=== PATIENT | male | born 1985 | race Caucasian/White ===

== ENCOUNTER 2017-01-15 18:14 | Inpatient (IN) | payer BC ==
[2017-01-15] MEDS ORDERED: Ketorolac 30 MG/ML SDV IVPUSH ONE (18:49)
[2017-01-15] MEDS ORDERED: Lidocaine 2% Viscous Solution 15 ML Cup PO ONE (18:49)
[2017-01-15] MEDS ORDERED: Sodium Chloride 0.9% 1,000 ML IV ONE (18:49)
--- NOTE | 2017-01-15 19:00 | EDM.PDOC ---
ED HPI GENERAL MEDICAL PROBLEM - General Chief Complaint: ENT Problem Stated Complaint: SORE THROAT Time Seen by Provider: 01/15/17 18:50 Source of Information: Reports: Patient History Limitations: Reports: No Limitations - History of Present Illness INITIAL COMMENTS - FREE TEXT/NARRATIVE: 31-year-old male presents for evaluation treatment of sore throat. Patient reports that the sore throat began on Wednesday. He was seen at the walk-in clinic on Wednesday. Rapid strep was performed and this was negative. He was placed on a Medrol dose pack. Patient states he has been taking the Medrol Dosepak and ibuprofen as prescribed but his symptoms have continues to worsen. He is currently complaining of fevers, chills, rigors, nausea, neck pain, odynophagia , neck swelling and pain into the ears. He is also complaining of headaches. He denies any vomiting or cough. Patient denies any ill contacts. He denies any recent travel. Patient has had his childhood immunizations. Location: Reports: Neck Treatments SCREEN AND CYCLONE REPAIRER: Reports: Other (see below) Other Treatments SCREEN AND CYCLONE REPAIRER: motrin at 1400 Throat Pain Score (Numeric/FACES): 10 - Related Data Allergies Allergy/AdvReac Type Severity Reaction Status Date / Time cefaclor [From [facility]] Allergy Cannot Verified 01/15/17 18:36 Remember Penicillins Allergy Cannot Verified 01/15/17 18:36 Remember Past Medical History - Past Surgical History HEENT Surgical History: Reports: Tonsillectomy Social & Family History - Tobacco Use Smoking Status *Q: Never Smoker - Recreational Drug Use Recreational Drug Use: Yes Recreational Drug Type: Reports: Marijuana/Hashish Recreational Drug Use Frequency: Socially ED ROS ENT - Review of Systems Review Of Systems: See Below Constitutional: Reports: Fever, Chills, Malaise, Decreased Appetite HEENT: Reports: Ear Pain, Throat Pain Respiratory: Denies: Cough GI/Abdominal: Reports: Nausea. Denies: Vomiting Musculoskeletal: Reports: Neck Pain Neurological: Reports: Headache ED EXAM, ENT - Physical Exam Exam: See Below Exam Limited By: No Limitations General Appearance: Alert, WD/WN, No Apparent Distress Eye Exam: Bilateral Eye: EOMI Ears: Normal External Exam, Normal Canal, Hearing Grossly Normal, Normal TMs Nose: Normal Inspection Mouth/Throat: Normal Inspection, Normal Gums, Normal Lips, Normal Teeth, Muffled Voice, Pharyngeal Erythema, Other (absent tonsils). No: Dental Abcess, Dental Tenderness, Peritonsillar Mass Head: Atraumatic, Normocephalic Neck: Tender Lateral, Other (swollen and erythematous neck) Respiratory/Chest: No Respiratory Distress, Lungs Clear, Normal Breath Sounds. No: Stridor Cardiovascular: Normal Peripheral Pulses, Regular Rate, Rhythm, No Murmur GI/Abdominal: Soft, Non-Tender Neurological: Alert, Oriented, Normal Cognition Psychiatric: Normal Affect, Normal Mood Skin: Warm, Dry, Erythema (anterior neck) Course - Vital Signs Last Recorded V/S: Last Vital Signs Temp 39.0 C H 01/15/17 18:34 Pulse 112 H 01/15/17 18:34 Resp 16 01/15/17 18:34 BP 127/68 01/15/17 18:34 Pulse Ox 98 01/15/17 18:34 - Orders/Labs/Meds Orders: Active Orders 24 hr Category Date Time Status Antiembolic Devices [RC] PER UNIT ROUTINE Care 01/15/17 22:52 Active Height and Weight [RC] DAILY Care 01/15/17 22:51 Active Intake and Output [RC] QSHIFT Care 01/15/17 22:51 Active Oxygen Therapy [RC] PRN Care 01/15/17 22:51 Active Peripheral IV Care [RC] . DIRECTED Care 01/15/17 18:49 Active RT Aerosol Therapy [RC] ASDIRECTED Care 01/15/17 22:53 Active Up With Assistance [RC] ASDIRECTED Care 01/15/17 22:51 Active Up ad Heather [RC] ASDIRECTED Care 01/15/17 22:51 Active VTE/DVT Education [RC] PER UNIT ROUTINE Care 01/15/17 22:51 Active Vital Signs [RC] Q4H Care 01/15/17 22:51 Active Consult to Case Management [CONS] Routine Cons 01/15/17 22:53 Active Respiratory Care Assess and Treatment [CONS] Routine Cons 01/15/17 22:53 Active Clear Liquid Diet [DIET] Diet 01/15/17 Dinner Active Soft Tissue Neck w Cont [CT] Stat Exams 01/15/17 20:11 Taken BASIC METABOLIC PANEL,BMP [CHEM] AM Lab 01/16/17 05:11 Ordered BASIC METABOLIC PANEL,BMP [CHEM] AM Lab 01/17/17 05:11 Ordered BASIC METABOLIC PANEL,BMP [CHEM] AM Lab 01/18/17 05:11 Ordered C-REACTIVE PROTEIN [CHEM] AM Lab 01/16/17 05:11 Ordered C-REACTIVE PROTEIN [CHEM] AM Lab 01/17/17 05:11 Ordered C-REACTIVE PROTEIN [CHEM] AM Lab 01/18/17 05:11 Ordered CBC WITH AUTO DIFF [HEME] AM Lab 01/16/17 05:11 Ordered CBC WITH AUTO DIFF [HEME] AM Lab 01/17/17 05:11 Ordered CBC WITH AUTO DIFF [HEME] AM Lab 01/18/17 05:11 Ordered CULTURE BLOOD [BC] Stat Lab 01/15/17 19:08 Received CULTURE BLOOD [BC] Stat Lab 01/15/17 19:10 Received CULTURE STREP A CONFIRMATION [RM] Stat Lab 01/15/17 19:20 Results MAGNESIUM [CHEM] AM Lab 01/16/17 05:11 Ordered MAGNESIUM [CHEM] AM Lab 01/17/17 05:11 Ordered MAGNESIUM [CHEM] AM Lab 01/18/17 05:11 Ordered STREP SCRN A RAPID W CULT CONF [RM] Stat Lab 01/15/17 19:20 Results Acetaminophen [Tylenol] Med 01/15/17 22:51 Active 650 mg PO Q4H PRN Acetaminophen/HYDROcodone [[place] 325-5 MG] Med 01/15/17 22:51 Active 1 tab PO Q4H PRN Albuterol/Ipratropium [DuoNeb 3.0-0.5 MG/3 ML] Med 01/15/17 22:51 Active 3 ml NEB Q4H PRN Bisacodyl [Dulcolax] Med 01/15/17 22:51 Active 5 mg PO DAILY PRN Clindamycin Phosphate [Cleocin] 900 mg Med 01/16/17 04:00 Active Sodium Chloride 0.9% [Normal Saline] 100 ml IV Q6H Dexamethasone Med 01/16/17 05:00 Active 4 mg IVPUSH Q6H Docusate Sodium [Colace] Med 01/15/17 22:51 Active 100 mg PO BID PRN Docusate Sodium/Sennosides [Senna Plus] Med 01/15/17 22:51 Active 1 tab PO BID PRN HYDROmorphone [Dilaudid] Med 01/15/17 22:51 Active 1 mg IVPUSH Q4H PRN LORazepam [Ativan] Med 01/15/17 22:51 Active 1 mg IV Q6H PRN Magnesium Rep Pharmacy to Dose [Pharmacy to Dose - Med 01/15/17 23:00 Pending Magnesium Replacement] 1 dose .XX ASDIRECTED Metoprolol Tartrate [Lopressor] Med 01/15/17 22:51 Active 5 mg IVPUSH Q4H PRN Ondansetron [Zofran] Med 01/15/17 22:51 Active 4 mg IV Q6H PRN Polyethylene Glycol 3350 [MiraLAX] Med 01/15/17 22:51 Active 17 gm PO DAILY PRN Potassium Rep Pharmacy to Dose [Pharmacy to Dose - Med 01/15/17 23:00 Pending Potassium Replacement] 1 dose .XX ASDIRECTED Promethazine [Phenergan] 12.5 mg Med 01/15/17 22:51 Active Sodium Chloride 0.9% [Normal Saline] 50 ml IV Q6H Saccharomyces Boulardii [Florastor] Med 01/16/17 09:00 Active 250 mg PO TID Sodium Chloride 0.9% [Normal Saline] 1,000 ml Med 01/15/17 20:30 Active IV ASDIRECTED Sodium Chloride 0.9% [Saline Flush] Med 01/15/17 18:49 Active 10 ml FLUSH ASDIRECTED PRN Sodium Chloride 0.9% [Saline Flush] Med 01/15/17 20:30 Active 10 ml FLUSH ONETIME PRN Temazepam [Restoril] Med 01/15/17 22:51 Active 30 mg PO BEDTIME PRN cefTRIAXone [Rocephin] 2 gm Med 01/15/17 23:00 Active Sodium Chloride 0.9% [Normal Saline] 100 ml IV Q24H hydrALAZINE [Apresoline] Med 01/15/17 22:51 Active 20 mg IVPUSH Q4H PRN Blood Culture x2 Reflex Set [OM.PC] Stat Oth 01/15/17 18:49 Ordered Peripheral IV Insertion Adult [OM.PC] Routine Oth 01/15/17 18:49 Ordered Sequential Compression Device [OM.PC] Per Unit Routine Oth 01/15/17 22:51 Ordered Resuscitation Status Routine Resus Stat 01/15/17 22:51 Ordered Medication Orders Acetaminophen (Tylenol) 650 mg PO Q4H PRN PRN Reason: Pain (Mild 1-3)/fever Hydrocodone Bitart/Acetaminophen ([place] 325-5 Mg) 1 tab PO Q4H PRN PRN Reason: Pain (moderate 4-6) Albuterol/Ipratropium (Duoneb 3.0-0.5 Mg/3 Ml) 3 ml NEB Q4H PRN PRN Reason: Shortness Of Breath/wheezing Bisacodyl (Dulcolax) 5 mg PO DAILY PRN PRN Reason: Constipation Dexamethasone (Dexamethasone) 4 mg IVPUSH Q6H [facility] Docusate Sodium (Colace) 100 mg PO BID PRN PRN Reason: Constipation Hydralazine HCl (Apresoline) 20 mg IVPUSH Q4H PRN PRN Reason: Hypertension Hydromorphone HCl (Dilaudid) 1 mg IVPUSH Q4H PRN PRN Reason: Pain (severe 7-10) Last Admin: 01/16/17 00:17 Dose: 1 mg Sodium Chloride (Normal Saline) 1,000 mls @ 125 mls/hr IV ASDIRECTED [facility] Last Admin: 01/15/17 21:13 Dose: 125 mls/hr Clindamycin Phosphate 900 mg/ (Sodium Chloride) 106 mls @ 100 mls/hr IV Q6H [facility] Promethazine HCl 12.5 mg/ (Sodium Chloride) 50.5 mls @ 100 mls/hr IV Q6H PRN PRN Reason: Nausea/Vomiting Ceftriaxone Sodium 2 gm/ (Sodium Chloride) 100 mls @ 200 mls/hr IV Q24H [facility] Last Admin: 01/16/17 00:18 Dose: 200 mls/hr Lorazepam (Ativan) 1 mg IV Q6H PRN PRN Reason: Anxiety Magnesium Sulfate (Pharmacy To Dose - Magnesium Replacement) 1 dose .XX ASDIRECTED [facility] Metoprolol Tartrate (Lopressor) 5 mg IVPUSH Q4H PRN PRN Reason: Tachycardia Ondansetron HCl (Zofran) 4 mg IV Q6H PRN PRN Reason: Nausea/Vomiting Polyethylene Glycol (Miralax) 17 gm PO DAILY PRN PRN Reason: Constipation Potassium Chloride (Pharmacy To Dose - Potassium Replacement) 1 dose .XX ASDIRECTED [facility] Saccharomyces Boulardii (Florastor) 250 mg PO TID [facility]IVA Senna/Docusate Sodium (Senna Plus) 1 tab PO BID PRN PRN Reason: Constipation Sodium Chloride (Saline Flush) 10 ml FLUSH ASDIRECTED PRN PRN Reason: Keep Vein Open Last Admin: 01/15/17 20:43 Dose: 10 ml Admin: 01/15/17 19:10 Dose: 10 ml Sodium Chloride (Saline Flush) 10 ml FLUSH ONETIME PRN PRN Reason: IV FLUSH Last Admin: 01/15/17 21:09 Dose: 10 ml Temazepam (Restoril) 30 mg PO BEDTIME PRN PRN Reason: Sleep Last Admin: 01/16/17 00:18 Dose: 30 mg Labs: Laboratory Tests 01/15/17 01/15/17 01/15/17 Range/Units 19:08 19:08 19:08 WBC 14.18 H (4.23-9.07) K/mm3 RBC 5.01 (4.63-6.08) M/mm3 Hgb 14.7 (13.7-17.5) gm/L Hct 44.5 (40.1-51.0) % MCV 88.8 (79.0-92.2) fl MCH 29.3 (25.7-32.2) pg MCHC 33.0 (32.2-35.5) g/dl RDW Std Deviation 42.5 (35.1-43.9) fL Plt Count 196 (163-337) K/mm3 MPV 11.0 (9.4-12.3) fl Neutrophils % (Manual) 82 H (40-60) % Band Neutrophils % 3 (0-10) % Lymphocytes % (Manual) 14 L (20-40) % Atypical Lymphs % 0 % Monocytes % (Manual) 1 L (2-10) % Eosinophils % (Manual) 0 L (0.8-7.0) % Basophils % (Manual) 0 L (0.2-1.2) Platelet Estimate Adequate Plt Morphology Comment Normal RBC Morph Comment Normal Sodium 138 (136-145) mEq/L Potassium 4.2 (3.5-5.1) mEq/L Chloride 101 (98-107) mEq/L Carbon Dioxide 25 (21-32) mEq/L Anion Gap 16.2 H (5-15) BUN 22 H (7-18) mg/dL Creatinine 1.1 (0.7-1.3) mg/dL Est Cr Clr Drug Dosing 83.09 mL/min Estimated GFR (MDRD) > 60 (>60) mL/min BUN/Creatinine Ratio 20.0 H (14-18) Glucose 113 H (74-106) mg/dL Lactic Acid 1.1 (0.4-2.0) mmol/L Calcium 9.6 (8.5-10.1) mg/dL Total Bilirubin 0.5 (0.2-1.0) mg/dL AST 108 H (15-37) U/L ALT 174 H (16-63) U/L Alkaline Phosphatase 86 (46-116) U/L C-Reactive Protein 21.2 H* (<1.0) mg/dL Total Protein 9.1 H (6.4-8.2) g/dl Albumin 3.8 (3.4-5.0) g/dl Globulin 5.3 gm/dL Albumin/Globulin Ratio 0.7 L (1-2) Monoscreen (NEGATIVE) 01/15/17 Range/Units 19:08 WBC (4.23-9.07) K/mm3 RBC (4.63-6.08) M/mm3 Hgb (13.7-17.5) gm/L Hct (40.1-51.0) % MCV (79.0-92.2) fl MCH (25.7-32.2) pg MCHC (32.2-35.5) g/dl RDW Std Deviation (35.1-43.9) fL Plt Count (163-337) K/mm3 MPV (9.4-12.3) fl Neutrophils % (Manual) (40-60) % Band Neutrophils % (0-10) % Lymphocytes % (Manual) (20-40) % Atypical Lymphs % % Monocytes % (Manual) (2-10) % Eosinophils % (Manual) (0.8-7.0) % Basophils % (Manual) (0.2-1.2) Platelet Estimate Plt Morphology Comment RBC Morph Comment Sodium (136-145) mEq/L Potassium (3.5-5.1) mEq/L Chloride (98-107) mEq/L Carbon Dioxide (21-32) mEq/L Anion Gap (5-15) BUN (7-18) mg/dL Creatinine (0.7-1.3) mg/dL Est Cr Clr Drug Dosing mL/min Estimated GFR (MDRD) (>60) mL/min BUN/Creatinine Ratio (14-18) Glucose (74-106) mg/dL Lactic Acid (0.4-2.0) mmol/L Calcium (8.5-10.1) mg/dL Total Bilirubin (0.2-1.0) mg/dL AST (15-37) U/L ALT (16-63) U/L Alkaline Phosphatase (46-116) U/L C-Reactive Protein (<1.0) mg/dL Total Protein (6.4-8.2) g/dl Albumin (3.4-5.0) g/dl Globulin gm/dL Albumin/Globulin Ratio (1-2) Monoscreen Negative (NEGATIVE) Meds: Medications Generic Name Dose Route Start Last Admin Trade Name Freq PRN Reason Stop Dose Admin Acetaminophen 650 mg 01/15/17 22:51 Tylenol PO Q4H PRN Pain (Mild 1-3)/fever Hydrocodone Bitart/Acetaminophen 1 tab 01/15/17 22:51 [place] 325-5 Mg PO Q4H PRN Pain (moderate 4-6) Albuterol/Ipratropium 3 ml 01/15/17 22:51 Duoneb 3.0-0.5 Mg/3 Ml NEB Q4H PRN Shortness Of Breath/wheezing Bisacodyl 5 mg 01/15/17 22:51 Dulcolax PO DAILY PRN Constipation Dexamethasone 4 mg 01/16/17 05:00 Dexamethasone IVPUSH Q6H [facility] Docusate Sodium 100 mg 01/15/17 22:51 Colace PO BID PRN Constipation Hydralazine HCl 20 mg 01/15/17 22:51 Apresoline IVPUSH Q4H PRN Hypertension Hydromorphone HCl 1 mg 01/15/17 22:51 01/16/17 00:17 Dilaudid IVPUSH 1 mg Q4H PRN Administration Pain (severe 7-10) Sodium Chloride 1,000 mls @ 125 mls/hr 01/15/17 20:30 01/15/17 21:13 Normal Saline IV 125 mls/hr ASDIRECTED [facility]A Administration Clindamycin Phosphate 900 mg/ 106 mls @ 100 mls/hr 01/16/17 04:00 Sodium Chloride IV Q6H [facility] Promethazine HCl 12.5 mg/ 50.5 mls @ 100 mls/hr 01/15/17 22:51 Sodium Chloride IV Q6H PRN Nausea/Vomiting Ceftriaxone Sodium 2 gm/ 100 mls @ 200 mls/hr 01/15/17 23:00 01/16/17 00:18 Sodium Chloride IV 200 mls/hr Q24H [facility] Administration Lorazepam 1 mg 01/15/17 22:51 Ativan IV Q6H PRN Anxiety Magnesium Sulfate 1 dose 01/15/17 23:00 Pharmacy To Dose - Magnesium Replacement .XX ASDIRECTED [facility] Metoprolol Tartrate 5 mg 01/15/17 22:51 Lopressor IVPUSH Q4H PRN Tachycardia Ondansetron HCl 4 mg 01/15/17 22:51 Zofran IV Q6H PRN Nausea/Vomiting Polyethylene Glycol 17 gm 01/15/17 22:51 Miralax PO DAILY PRN Constipation Potassium Chloride 1 dose 01/15/17 23:00 Pharmacy To Dose - Potassium Replacement .XX ASDIRECTED [facility] Saccharomyces Boulardii 250 mg 01/16/17 09:00 Florastor PO TID [facility]A Senna/Docusate Sodium 1 tab 01/15/17 22:51 Senna Plus PO BID PRN Constipation Sodium Chloride 10 ml 01/15/17 18:49 01/15/17 20:43 Saline Flush FLUSH 10 ml ASDIRECTED PRN Administration Keep Vein Open Sodium Chloride 10 ml 01/15/17 20:30 01/15/17 21:09 Saline Flush FLUSH 10 ml ONETIME PRN Administration IV FLUSH Temazepam 30 mg 01/15/17 22:51 01/16/17 00:18 Restoril PO 30 mg BEDTIME PRN Administration Sleep Discontinued Medications Generic Name Dose Route Start Last Admin Trade Name Freq PRN Reason Stop Dose Admin Dexamethasone 10 mg 01/15/17 22:30 01/15/17 22:59 Dexamethasone IVPUSH 01/15/17 22:31 10 mg ONETIME ONE Administration Hydromorphone HCl 1 mg 01/15/17 20:11 01/15/17 20:42 Dilaudid IVPUSH 01/15/17 20:12 1 mg ONETIME ONE Administration Sodium Chloride 1,000 mls @ 999 mls/hr 01/15/17 18:49 01/15/17 19:11 Normal Saline IV 01/15/17 19:49 999 mls/hr ONETIME ONE Administration Clindamycin Phosphate 900 mg/ 106 mls @ 100 mls/hr 01/15/17 22:07 01/15/17 22 :21 Sodium Chloride IV 01/15/17 23:10 100 mls/hr ONETIME ONE Administration Vancomycin HCl 1 gm/ Sodium 250 mls @ 250 mls/hr 01/15/17 22:24 01/15/17 23: 23 Chloride IV 01/15/17 23:23 Not Given ONETIME ONE Iopamidol 80 ml 01/15/17 20:30 01/15/17 21:08 Isovue-300 (61%) IVPUSH 01/15/17 20:31 80 ml ONETIME ONE Administration Ketorolac Tromethamine 30 mg 01/15/17 18:49 01/15/17 19:10 Toradol IVPUSH 01/15/17 18:50 30 mg ONETIME ONE Administration Lidocaine HCl 15 ml 01/15/17 18:49 01/15/17 19:11 Xylocaine 2% Viscous PO 01/15/17 18:50 15 ml ONETIME ONE Administration - Radiology Interpretation Free Text/Narrative:: Ct of the soft tissues of the neck impression per Vrad : 1. retropharyngeal abscess and inflammatory change with some right carotid space fluid attenuation. 2. Laryngeal airway appears diminutive. Clinical correlation requested. 3. Adenoiditis without definite tonsillitis. CT Results Date: 01/15/17 - Re-Assessments/Exams Free Text/Narrative Re-Assessment/Exam: 01/16/17 00:39 Labs returned. White blood cell count is elevated at 14.18 with 3% bands, hemoglobin is 14.7 and platelets are 126. CRP is elevated at 21.2. sodium is 138, potassium is 4.2 chloride is 101. Anion gap is 16.2. Glucose is 113. AST is 108. ALT is 174 and alkaline phosphatase is 84. Edgar was negative. Strep is negative. Blood cultures have been ordered. Once lab studies returned the decision was made to CT of the neck to rule out an abscess. CT showed a retropharyngeal abscess. I discussed the case with Dr. Malik and Dr. Comer at [facility] in [place]. Dr. Malik recommended high doses of antibiotics. He did not feel that the patient needed to be transferred to [facility] in [facility]. Recommended starting clindamycin 900 mg IV and vancomycin. Also recommended given 10 mg IV Decadron. I discussed the case with Dr. Shea, hospitalist on-call. He feels comfortable accepting in the patient will accept the patient to [facility]. Departure - Departure Time of Disposition: 00:42 Disposition: Admitted As Inpatient 64 Condition: Serious Clinical Impression: Retropharyngeal abscess - Discharge Information - My Orders Last 24 Hours: My Active Orders 01/15/17 18:49 Peripheral IV Care [RC] . DIRECTED Sodium Chloride 0.9% [Saline Flush] 10 ml FLUSH ASDIRECTED PRN Blood Culture x2 Reflex Set [OM.PC] Stat Peripheral IV Insertion Adult [OM.PC] Routine 01/15/17 19:08 CULTURE BLOOD [BC] Stat 01/15/17 19:10 CULTURE BLOOD [BC] Stat 01/15/17 19:20 CULTURE STREP A CONFIRMATION [RM] Stat STREP SCRN A RAPID W CULT CONF [RM] Stat 01/15/17 20:11 Soft Tissue Neck w Cont [CT] Stat 01/15/17 20:30 Sodium Chloride 0.9% [Normal Saline] 1,000 ml IV ASDIRECTED Sodium Chloride 0.9% [Saline Flush] 10 ml FLUSH ONETIME PRN - Assessment/Plan Last 24 Hours: My Active Orders 01/15/17 18:49 Peripheral IV Care [RC] . DIRECTED Sodium Chloride 0.9% [Saline Flush] 10 ml FLUSH ASDIRECTED PRN Blood Culture x2 Reflex Set [OM.PC] Stat Peripheral IV Insertion Adult [OM.PC] Routine 01/15/17 19:08 CULTURE BLOOD [BC] Stat 01/15/17 19:10 CULTURE BLOOD [BC] Stat 01/15/17 19:20 CULTURE STREP A CONFIRMATION [RM] Stat STREP SCRN A RAPID W CULT CONF [RM] Stat 01/15/17 20:11 Soft Tissue Neck w Cont [CT] Stat 01/15/17 20:30 Sodium Chloride 0.9% [Normal Saline] 1,000 ml IV ASDIRECTED Sodium Chloride 0.9% [Saline Flush] 10 ml FLUSH ONETIME PRN
[2017-01-15] MEDS: Sodium Chloride 0.9% 10 ML Syringe FLUSH PRN ×2 (19:10→20:43)
[2017-01-15] MEDS ORDERED: HYDROmorphone 1 MG/ML Syringe IVPUSH ONE (20:11)
[2017-01-15] MEDS ORDERED: Iopamidol 612 MG/ML 100 ML Bottle IVPUSH ONE (20:30)
[2017-01-15] MEDS ORDERED: Sodium Chloride 0.9% 10 ML Syringe FLUSH PRN (20:30)
[2017-01-15] MEDS: Sodium Chloride 0.9% 1,000 ML IV SCH (21:13)
[2017-01-15] MEDS ORDERED: Clindamycin Phosphate 900 MG in Sodium Chloride 0.9% 100 ML IV ONE (22:07)
[2017-01-15] MEDS ORDERED: Dexamethasone 10 MG/ML SDV IVPUSH ONE (22:30)
--- NOTE | 2017-01-15 22:50 | PCM.HP ---
H&P History of Present Illness - General Date of Service: 01/15/17 Admit Problem/Dx: Retropharyngeal abscess and adenoiditis Source of Information: Patient, Old Records, Provider, RN Notes Reviewed History Limitations: Reports: No Limitations - History of Present Illness Initial Comments - Free Text/Narative: His is a 31 year old white male with no past medical history who comes seen we complains of sore throat that started Wednesday. He was seen initially at the walk- in clinic on Wednesday and was found negative for strep. He was given medrol dosepak and ibuprofen on discharge but he experienced no relief. The patient presented to emergency department with complaints of fever, chills, nausea and neck pain, edema and odynophagia. Patient denies any previous history in the past. No sick contact or upper respiratory infection. Denies any recent travel. He is not an active smoker. His initial workup in the emergency department shows a CBC remarkable for WBC of 14.18 and neutrophils of 82%. His chemistry is remarkable for anion gap of 16.2, BUN of 22, glucose of 113, AST of 108, ALT of 174, CRP of 21.2 and total protein of 9.1. He is negative for mono screen. His soft tissue of neck CT scan V-rad report reads retropharyngeal abscess and inflammatory change with some right carotid space fluid attenuation. Laryngeal airway appears diminutive clinical correlation requested. Number next adenoiditis without definite active definite tonsillitis. Patient received initial treatment in the emergency department before he was sent to the floor for further management. At the time of my examination, he appeared comfortable and somewhat better. He is being admitted for treatment of retropharyngeal abscess with adenoiditis. Throat Pain Score (Numeric/FACES): 10 - Related Data Allergies/Adverse Reactions: Allergies Allergy/AdvReac Type Severity Reaction Status Date / Time cefaclor [From [facility]] Allergy Cannot Verified 01/15/17 18:36 Remember Penicillins Allergy Cannot Verified 01/15/17 18:36 Remember Past Medical History - Past Surgical History HEENT Surgical History: Reports: Tonsillectomy Social & Family History - Tobacco Use Smoking Status *Q: Never Smoker - Recreational Drug Use Recreational Drug Use: Yes Recreational Drug Type: Reports: Marijuana/Hashish Recreational Drug Use Frequency: Socially H&P Review of Systems - Review of Systems: Review Of Systems: See Below General: Reports: Fever, Chills, Malaise, Decreased Appetite HEENT: Reports: No Symptoms, Dysphasia, Ear Pain, Eye Pain, Headaches, Other ( no muffled voice or drooling). Denies: Sore Throat Cardiovascular: Reports: No Symptoms Gastrointestinal: Reports: Nausea. Denies: Abdominal Pain, Vomiting Genitourinary: Reports: No Symptoms Musculoskeletal: Reports: No Symptoms Skin: Denies: Pruritis, Rash, Erythema Psychiatric: Denies: Depression, Anxiety, Hallucinations, Suicidal Ideation, Homicidal Ideation Neurological: Reports: Headache. Denies: Confusion Hematologic/Lymphatic: Reports: No Symptoms Immunologic: Reports: No Symptoms Exam - Exam Exam: See Below - Vital Signs Vital Signs: Last Vital Signs Temp 39.0 C H 01/15/17 18:34 Pulse 112 H 01/15/17 18:34 Resp 16 01/15/17 18:34 BP 127/68 01/15/17 18:34 Pulse Ox 98 01/15/17 18:34 Weight: 88.451 kg - Exam General: Alert, Oriented, Cooperative, Other (Comfortable and voice not muffled) HEENT: Conjunctiva Clear, EACs Clear, EOMI, Hearing Intact, Mucosa Moist & [place] , Nares Patent, Normal Nasal Septum, Pupils Equal, Pupils Reactive, Other ( Pharyneal erythema, neck tenderness ) Neck: Supple, Trachea Midline, Lymphadenopathy, Other (no obvious neck edema or erythema). No: Full Range of Motion, JVD Lungs: Clear to Auscultation, Normal Respiratory Effort Cardiovascular: Regular Rate, Regular Rhythm Abdomen: Normal Bowel Sounds, Soft. No: Organomegaly, Tenderness (Male) Exam: Deferred Rectal (Males) Exam: Deferred Back Exam: Normal Inspection, Full Range of Motion Extremities: Normal Inspection, Normal Pulses Peripheral Pulses: 3+: Posterior Tibial (L), Posterior Tibial (R), Dorsalis Pedis (L), Dorsalis Pedis (R) Skin: Warm, Dry, Intact Neuro Extensive - Mental Status: Oriented x3, Normal Cognition, Memory Intact Neuro Extensive - Motor, Sensory, Reflexes: CN II-XII Intact, Normal Gait Psychiatric: Alert, Normal Affect, Normal Mood - Patient Data Lab Results Last 24 hrs: Laboratory Results - last 24 hr 06/16/17 06/16/17 06/16/17 Range/Units 19:08 19:08 19:08 WBC 14.18 H (4.23-9.07) K/mm3 RBC 5.01 (4.63-6.08) M/mm3 Hgb 14.7 (13.7-17.5) gm/L Hct 44.5 (40.1-51.0) % MCV 88.8 (79.0-92.2) fl MCH 29.3 (25.7-32.2) pg MCHC 33.0 (32.2-35.5) g/dl RDW Std Deviation 42.5 (35.1-43.9) fL Plt Count 196 (163-337) K/mm3 MPV 11.0 (9.4-12.3) fl Neutrophils % (Manual) 82 H (40-60) % Band Neutrophils % 3 (0-10) % Lymphocytes % (Manual) 14 L (20-40) % Atypical Lymphs % 0 % Monocytes % (Manual) 1 L (2-10) % Eosinophils % (Manual) 0 L (0.8-7.0) % Basophils % (Manual) 0 L (0.2-1.2) Platelet Estimate Adequate Plt Morphology Comment Normal RBC Morph Comment Normal Sodium 138 (136-145) mEq/L Potassium 4.2 (3.5-5.1) mEq/L Chloride 101 (98-107) mEq/L Carbon Dioxide 25 (21-32) mEq/L Anion Gap 16.2 H (5-15) BUN 22 H (7-18) mg/dL Creatinine 1.1 (0.7-1.3) mg/dL Est Cr Clr Drug Dosing 83.09 mL/min Estimated GFR (MDRD) > 60 (>60) mL/min BUN/Creatinine Ratio 20.0 H (14-18) Glucose 113 H (74-106) mg/dL Lactic Acid 1.1 (0.4-2.0) mmol/L Calcium 9.6 (8.5-10.1) mg/dL Total Bilirubin 0.5 (0.2-1.0) mg/dL AST 108 H (15-37) U/L ALT 174 H (16-63) U/L Alkaline Phosphatase 86 (46-116) U/L C-Reactive Protein 21.2 H* (<1.0) mg/dL Total Protein 9.1 H (6.4-8.2) g/dl Albumin 3.8 (3.4-5.0) g/dl Globulin 5.3 gm/dL Albumin/Globulin Ratio 0.7 L (1-2) Monoscreen (NEGATIVE) 01/15/ Range/Units 19:08 WBC (4.23-9.07) K/mm3 RBC (4.63-6.08) M/mm3 Hgb (13.7-17.5) gm/L Hct (40.1-51.0) % MCV (79.0-92.2) fl MCH (25.7-32.2) pg MCHC (32.2-35.5) g/dl RDW Std Deviation (35.1-43.9) fL Plt Count (163-337) K/mm3 MPV (9.4-12.3) fl Neutrophils % (Manual) (40-60) % Band Neutrophils % (0-10) % Lymphocytes % (Manual) (20-40) % Atypical Lymphs % % Monocytes % (Manual) (2-10) % Eosinophils % (Manual) (0.8-7.0) % Basophils % (Manual) (0.2-1.2) Platelet Estimate Plt Morphology Comment RBC Morph Comment Sodium (136-145) mEq/L Potassium (3.5-5.1) mEq/L Chloride (98-107) mEq/L Carbon Dioxide (21-32) mEq/L Anion Gap (5-15) BUN (7-18) mg/dL Creatinine (0.7-1.3) mg/dL Est Cr Clr Drug Dosing mL/min Estimated GFR (MDRD) (>60) mL/min BUN/Creatinine Ratio (14-18) Glucose (74-106) mg/dL Lactic Acid (0.4-2.0) mmol/L Calcium (8.5-10.1) mg/dL Total Bilirubin (0.2-1.0) mg/dL AST (15-37) U/L ALT (16-63) U/L Alkaline Phosphatase (46-116) U/L C-Reactive Protein (<1.0) mg/dL Total Protein (6.4-8.2) g/dl Albumin (3.4-5.0) g/dl Globulin gm/dL Albumin/Globulin Ratio (1-2) Monoscreen Negative (NEGATIVE) Result Diagrams: 01/16/17 05:50 01/16/17 05:50 William Results Last 24 hrs: Microbiology 01/15/17 19:20 Group A Streptococcus Rapid Screen - Final Throat NEGATIVE STREP A SCREEN *Q Meaningful Use (ADM) - VTE *Q VTE Criteria *Q: - Stroke *Q Stroke Criteria *Q: - AMI *Q AMI Criteria *Q: Problem List Initiated/Reviewed/Updated: Yes Orders Last 24hrs: Active Orders 24 hr Category Date Time Status Peripheral IV Care [RC] . DIRECTED Care 01/15/17 18:49 Active Soft Tissue Neck w Cont [CT] Stat Exams 01/15/17 20:11 Taken CULTURE BLOOD [BC] Stat Lab 01/15/17 19:08 Received CULTURE BLOOD [BC] Stat Lab 01/15/17 19:10 Received CULTURE STREP A CONFIRMATION [RM] Stat Lab 01/15/17 19:20 Results STREP SCRN A RAPID W CULT CONF [RM] Stat Lab 01/15/17 19:20 Results Clindamycin Phosphate [Cleocin] 900 mg Med 01/15/17 22:07 Active Sodium Chloride 0.9% [Normal Saline] 100 ml IV ONETIME Sodium Chloride 0.9% [Normal Saline] 1,000 ml Med 01/15/17 20:30 Active IV ASDIRECTED Sodium Chloride 0.9% [Saline Flush] Med 01/15/17 18:49 Active 10 ml FLUSH ASDIRECTED PRN Sodium Chloride 0.9% [Saline Flush] Med 01/15/17 20:30 Active 10 ml FLUSH ONETIME PRN Vancomycin [Vancocin] 1 gm Med 01/15/17 22:24 Active Sodium Chloride 0.9% [Normal Saline] 250 ml IV ONETIME Blood Culture x2 Reflex Set [OM.PC] Stat Oth 01/15/17 18:49 Ordered Peripheral IV Insertion Adult [OM.PC] Routine Oth 01/15/17 18:49 Ordered Medication Orders Sodium Chloride (Normal Saline) 1,000 mls @ 125 mls/hr IV ASDIRECTED SIVA Last Admin: 01/15/17 21:13 Dose: 125 mls/hr Clindamycin Phosphate 900 mg/ (Sodium Chloride) 106 mls @ 100 mls/hr IV ONETIME ONE Stop: 01/15/17 23:10 Last Admin: 01/15/17 22:21 Dose: 100 mls/hr Vancomycin HCl 1 gm/ Sodium (Chloride) 250 mls @ 250 mls/hr IV ONETIME ONE Stop: 01/15/17 23:23 Sodium Chloride (Saline Flush) 10 ml FLUSH ASDIRECTED PRN PRN Reason: Keep Vein Open Last Admin: 01/15/17 20:43 Dose: 10 ml Admin: 01/15/17 19:10 Dose: 10 ml Sodium Chloride (Saline Flush) 10 ml FLUSH ONETIME PRN PRN Reason: IV FLUSH Last Admin: 01/15/17 21:09 Dose: 10 ml Assessment/Plan Comment:: Assessment/Plan: Acute: Retropharyngeal Abscess with Adenoiditis - He dose not smoke - No hx/o chronic URI or sick contact - Received Clindamycin and Vancomycin in ED - Continue Cleocin 900 mg IV Q8, Rocephin 2 gram IV daily - Oral Probiotic - Clear liquids and advanced as tolerated Mild Odynophagia - No respiratory compromise - Supportive Care - Consider hurricane spray PRN Plan: Admit to [facility] Blood Culture X 2 Intravenous fluids Routine AM Labs Monitor for Respiratory Issues Additional orders as above
[2017-01-15] MEDS ORDERED: hydrALAZINE 20 MG/ML SDV IVPUSH PRN (22:51)
[2017-01-15] MEDS ORDERED: LORazepam 2 MG/ML MDV IV PRN (22:51)
[2017-01-15] MEDS ORDERED: Acetaminophen 325 MG Tab PO PRN (22:51)
[2017-01-15] MEDS ORDERED: Polyethylene Glycol 3350 Powder 17 GM Packet PO PRN (22:51)
[2017-01-15] MEDS ORDERED: Albuterol/Ipratropium 3.0-0.5 MG/3 ML Neb Soln NEB PRN (22:51)
[2017-01-15] MEDS ORDERED: Docusate Sodium 100 MG Cap PO PRN (22:51)
[2017-01-15] MEDS ORDERED: Bisacodyl 5 MG Tab PO PRN (22:51)
[2017-01-15] MEDS ORDERED: Metoprolol Tartrate 5 MG/5 ML SDV IVPUSH PRN (22:51)
[2017-01-15] MEDS ORDERED: Temazepam 15 MG Cap PO PRN (22:51)
[2017-01-15] MEDS ORDERED: Promethazine 12.5 MG in Sodium Chloride 0.9% 50 ML IV PRN (22:51)
[2017-01-15] MEDS ORDERED: Ondansetron 4 MG/2 ML SDV IV PRN (22:51)
[2017-01-16] MEDS: HYDROmorphone 1 MG/ML Syringe IVPUSH PRN ×2 (00:17→05:03)
[2017-01-16] MEDS: cefTRIAXone 2 GM in Sodium Chloride 0.9% 100 ML IV SCH ×2 (00:18→22:42)
[2017-01-16] MEDS: Dexamethasone 4 MG/ML SDV IVPUSH SCH ×4 (04:25→22:42)
[2017-01-16] MEDS: Clindamycin Phosphate 900 MG in Sodium Chloride 0.9% 100 ML IV SCH ×4 (04:49→21:09)
[2017-01-16] MEDS: Sodium Chloride 0.9% 1,000 ML IV SCH ×3 (05:31→23:45)
[2017-01-16] MEDS ORDERED: Saccharomyces Boulardii (Probiotic) 250 MG Cap PO SCH ×3 (09:00→21:00)
[2017-01-16] MEDS: Acetaminophen/HYDROcodone 325-5 MG Tab PO PRN ×2 (09:05→21:22)
[2017-01-16] MEDS: Alum Hydrox/Mag Hydrox/Simeth 30 ML, Lidocaine 2% 15 ML PO SCH ×6 (11:01→23:45)
[2017-01-16] MEDS: Benzonatate 100 MG Cap PO SCH ×2 (17:10→21:22)
[2017-01-16] MEDS ORDERED: Piperacillin/Tazobactam 4.5 GM in Sodium Chloride 0.9% 100 ML IV ONE (17:15)
--- NOTE | 2017-01-16 18:23 | PCM.PN ---
- General Info Date of Service: 01/16/17 Admission Dx/Problem (Free Text): Retropharyngeal Abscess and Adenoiditis Subjective Update: Follow Up Functional Status: Reports: pain controlled, tolerating diet, ambulating, urinating. Denies: new symptoms - Review of Systems General: Denies: Fever, Weakness, Fatigue, Malaise, Chills HEENT: Reports: no symptoms Pulmonary: Denies: shortness of breath, pleuritic chest pain Cardiovascular: Denies: Chest Pain, Palpitations Gastrointestinal: Reports: Difficulty swallowing (mild). Denies: Abdominal pain , Nausea, Vomiting Genitourinary: Reports: no symptoms Musculoskeletal: Reports: no symptoms Skin: Reports: no symptoms Neurological: Reports: No Symptoms Psychiatric: Denies: confusion, anxiety, cravings, hallucinations Systems Review Comment:: No overnight or acute issues. He is feeling much better. He has no new complaints. He is tolerating clear diet but would like to have some more GI cocktail. - Patient Data Vitals - most recent: Last Vital Signs Temp 36.6 C 01/16/17 14:13 Pulse 61 01/16/17 14:13 Resp 12 01/16/17 14:13 BP 126/77 01/16/17 14:13 Pulse Ox 98 01/16/17 14:13 Weight - most recent: 88.904 kg I&O - last 24 hours: Intake & Output 01/16/17 01/16/17 01/16/17 06:59 14:59 22:59 Intake Total 740 2280 Balance 740 2280 Lab Results last 24 hrs: Laboratory Results - last 24 hr 01/16/17 01/16/17 Range/Units 05:50 05:50 WBC 14.07 H (4.23-9.07) K/mm3 RBC 4.30 L (4.63-6.08) M/mm3 Hgb 12.7 L (13.7-17.5) gm/L Hct 38.4 L (40.1-51.0) % MCV 89.3 (79.0-92.2) fl MCH 29.5 (25.7-32.2) pg MCHC 33.1 (32.2-35.5) g/dl RDW Std Deviation 42.7 (35.1-43.9) fL Plt Count 175 (163-337) K/mm3 MPV 11.2 (9.4-12.3) fl Neut % (Auto) 87.8 H (34.0-67.9) % Lymph % (Auto) 4.8 L (21.8-53.1) % [place] % (Auto) 7.0 (5.3-12.2) % Eos % (Auto) 0 L (0.8-7.0) Baso % (Auto) 0.1 (0.1-1.2) % Neut # (Auto) 12.36 H (1.78-5.38) K/mm3 Lymph # (Auto) 0.67 L (1.32-3.57) K/mm3 [place] # (Auto) 0.99 H (0.30-0.82) K/mm3 Eos # (Auto) 0.00 L (0.04-0.54) K/mm3 Baso # (Auto) 0.01 (0.01-0.08) K/mm3 Manual Slide Review Abnormal smear Sodium 137 (136-145) mEq/L Potassium 4.3 (3.5-5.1) mEq/L Chloride 104 (98-107) mEq/L Carbon Dioxide 22 (21-32) mEq/L Anion Gap 15.3 H (5-15) BUN 16 (7-18) mg/dL Creatinine 0.8 (0.7-1.3) mg/dL Est Cr Clr Drug Dosing 114.24 mL/min Estimated GFR (MDRD) > 60 (>60) mL/min BUN/Creatinine Ratio 20.0 H (14-18) Glucose 151 H (74-106) mg/dL Calcium 8.2 L (8.5-10.1) mg/dL Magnesium 1.9 (1.8-2.4) mg/dl C-Reactive Protein 17.7 H* (<1.0) mg/dL Med Orders - Current: Current Medications Acetaminophen (Tylenol) 650 mg PO Q4H PRN PRN Reason: Pain (Mild 1-3)/fever Hydrocodone Bitart/Acetaminophen (Mobile 325-5 Mg) 1 tab PO Q4H PRN PRN Reason: Pain (moderate 4-6) Last Admin: 01/16/17 09:05 Dose: 1 tab Albuterol/Ipratropium (Duoneb 3.0-0.5 Mg/3 Ml) 3 ml NEB Q4H PRN PRN Reason: Shortness Of Breath/wheezing Benzonatate (Tessalon Perles) 200 mg PO TID [facility] Last Admin: 01/16/17 17:10 Dose: 200 mg Bisacodyl (Dulcolax) 5 mg PO DAILY PRN PRN Reason: Constipation Al Hydroxide/Mg Hydroxide 30 (ml/ Lidocaine HCl 15 ml) 0 ml PO Q6HR [facility] Last Admin: 01/16/17 17:14 Dose: 45 ml Dexamethasone (Dexamethasone) 4 mg IVPUSH Q6H [facility] Last Admin: 01/16/17 17:11 Dose: 4 mg Docusate Sodium (Colace) 100 mg PO BID PRN PRN Reason: Constipation Hydralazine HCl (Apresoline) 20 mg IVPUSH Q4H PRN PRN Reason: Hypertension Hydromorphone HCl (Dilaudid) 1 mg IVPUSH Q4H PRN PRN Reason: Pain (severe 7-10) Last Admin: 01/16/17 05:03 Dose: 1 mg Sodium Chloride (Normal Saline) 1,000 mls @ 125 mls/hr IV ASDIRECTED [facility] Last Admin: 01/16/17 14:15 Dose: 125 mls/hr Clindamycin Phosphate 900 mg/ (Sodium Chloride) 106 mls @ 100 mls/hr IV Q6H [facility] Last Admin: 01/16/17 17:10 Dose: 100 mls/hr Promethazine HCl 12.5 mg/ (Sodium Chloride) 50.5 mls @ 100 mls/hr IV Q6H PRN PRN Reason: Nausea/Vomiting Ceftriaxone Sodium 2 gm/ (Sodium Chloride) 100 mls @ 200 mls/hr IV Q24H [facility] Last Admin: 01/16/17 00:18 Dose: 200 mls/hr Piperacillin Sod/Tazobactam (Sod 4.5 gm/ Sodium Chloride) 100 mls @ 25 mls/hr IV Q8H [facility] Lorazepam (Ativan) 1 mg IV Q6H PRN PRN Reason: Anxiety Magnesium Sulfate (Pharmacy To Dose - Magnesium Replacement) 1 dose .XX ASDIRECTED [facility] Metoprolol Tartrate (Lopressor) 5 mg IVPUSH Q4H PRN PRN Reason: Tachycardia Ondansetron HCl (Zofran) 4 mg IV Q6H PRN PRN Reason: Nausea/Vomiting Polyethylene Glycol (Miralax) 17 gm PO DAILY PRN PRN Reason: Constipation Potassium Chloride (Pharmacy To Dose - Potassium Replacement) 1 dose .XX ASDIRECTED [facility] Saccharomyces Boulardii (Florastor) 500 mg PO TID [facility] Senna/Docusate Sodium (Senna Plus) 1 tab PO BID PRN PRN Reason: Constipation Sodium Chloride (Saline Flush) 10 ml FLUSH ASDIRECTED PRN PRN Reason: Keep Vein Open Last Admin: 01/15/17 20:43 Dose: 10 ml Sodium Chloride (Saline Flush) 10 ml FLUSH ONETIME PRN PRN Reason: IV FLUSH Last Admin: 01/15/17 21:09 Dose: 10 ml Temazepam (Restoril) 30 mg PO BEDTIME PRN PRN Reason: Sleep Last Admin: 01/16/17 00:18 Dose: 30 mg Discontinued Medications Dexamethasone (Dexamethasone) 10 mg IVPUSH ONETIME ONE Stop: 01/15/17 22:31 Last Admin: 01/15/17 22:59 Dose: 10 mg Hydromorphone HCl (Dilaudid) 1 mg IVPUSH ONETIME ONE Stop: 01/15/17 20:12 Last Admin: 01/15/17 20:42 Dose: 1 mg Sodium Chloride (Normal Saline) 1,000 mls @ 999 mls/hr IV ONETIME ONE Stop: 01/15/17 19:49 Last Admin: 01/15/17 19:11 Dose: 999 mls/hr Clindamycin Phosphate 900 mg/ (Sodium Chloride) 106 mls @ 100 mls/hr IV ONETIME ONE Stop: 01/15/17 23:10 Last Admin: 01/15/17 22:21 Dose: 100 mls/hr Vancomycin HCl 1 gm/ Sodium (Chloride) 250 mls @ 250 mls/hr IV ONETIME ONE Stop: 01/15/17 23:23 Last Admin: 01/15/17 23:23 Dose: Not Given Piperacillin Sod/Tazobactam (Sod 4.5 gm/ Sodium Chloride) 100 mls @ 200 mls/hr IV ONETIME ONE Stop: 01/16/17 17:44 Iopamidol (Isovue-300 (61%)) 80 ml IVPUSH ONETIME ONE Stop: 06/16/17 20:31 Last Admin: 01/15/17 21:08 Dose: 80 ml Ketorolac Tromethamine (Toradol) 30 mg IVPUSH ONETIME ONE Stop: 01/15/17 18:50 Last Admin: 01/15/17 19:10 Dose: 30 mg Lidocaine HCl (Xylocaine 2% Viscous) 15 ml PO ONETIME ONE Stop: 01/15/17 18:50 Last Admin: 01/15/17 19:11 Dose: 15 ml Saccharomyces Boulardii (Florastor) 250 mg PO TID [facility] Last Admin: 01/16/17 09:04 Dose: 250 mg Saccharomyces Boulardii (Florastor) 250 mg PO BID [facility] - Exam General: alert, oriented, cooperative, no acute distress, other (He is able to speak right and clear w/o muffled voice) HEENT: Pupils equal, Pupils reactive, EOMI, Mucous membr. moist/pink, Other ( oropharynx: somewhat difficult to visuable but otherwise clear) Neck: supple, trachea midline, no JVD, lymphadenopathy, other (No obvious neck erythema or edema) Lungs: Clear to auscultation, Normal respiratory effort Cardiovascular: Regular Rate, Regular Rhythm Abdomen: bowel sounds present, soft, no tenderness, no distension (Male) Exam: Deferred Back Exam: Normal Inspection, Decreased Range of Motion Extremities: no edema, normal pulses, no tenderness/swelling, no clubbing, no cyanosis, no calf tenderness Peripheral Pulses: 3+: Posterior Tibial (L), Posterior Tibial (R), Dorsalis Pedis (L), Dorsalis Pedis (R) Skin: warm, dry, intact Neurological: no new focal deficit Psy/Mental Status: alert, normal affect, normal mood - Problem List Review Problem List Initiated/Reviewed/Updated: Yes - My Orders Last 24 Hours: My Active Orders 01/16/17 12:00 Alum Hydrox/Mag Hydrox/Simeth [Mag-Al Plus] 30 ml Lidocaine 2% [Xylocaine 2% Viscous] 15 ml PO Q6HR 01/16/17 15:00 Benzonatate [Tessalon Perles] 200 mg PO TID 01/16/17 21:00 Saccharomyces Boulardii [Florastor] 500 mg PO TID 01/16/17 Dinner Full Liquid Diet [DIET] 01/17/17 02:00 Piperacillin/Tazobactam [Zosyn] 4.5 gm Sodium Chloride 0.9% [Normal Saline] 100 ml IV Q8H - Plan Plan:: Assessment/Plan: Acute: Retropharyngeal Abscess with Adenoiditis - He dose not smoke - No hx/o chronic URI or sick contact - Received Clindamycin and Vancomycin in ED - Continue Cleocin 900 mg IV Q8, Rocephin 2 gram IV daily - Oral Probiotic - Clear liquids and advanced as tolerated Mild Dysphagia - No respiratory compromise - GI cocktail Q6H PRN Gram Negative Cocco-bacilli Bacteremia - Blood Culture x2 - Added IV Zosyn 4gram IV Q6 for pharmacy to dose Plan: He looks clinically stable Continue current treatment Routine AM Labs Monitor for Respiratory Issues Continue Supportive Care Additional orders as above
[2017-01-17] MEDS: Piperacillin/Tazobactam 4.5 GM in Sodium Chloride 0.9% 100 ML IV SCH ×3 (02:58→17:36)
[2017-01-17] MEDS: Clindamycin Phosphate 900 MG in Sodium Chloride 0.9% 100 ML IV SCH ×4 (03:06→21:42)
[2017-01-17] MEDS ORDERED: Aluminum Hydroxide/Magnesium Hydroxide/Simethicone Susp 30 ML Cup PO PRN (03:16)
[2017-01-17] MEDS: Dexamethasone 4 MG/ML SDV IVPUSH SCH ×4 (04:24→22:30)
--- NOTE | 2017-01-17 06:45 | PCM.PN ---
- General Info Date of Service: 01/17/17 Admission Dx/Problem (Free Text): Retropharyngeal abscess and adenoiditis Subjective Update: Follow Up Functional Status: Reports: pain controlled, tolerating diet, ambulating, urinating. Denies: new symptoms - Review of Systems General: Denies: Fever, Weakness, Fatigue, Malaise, Chills HEENT: Reports: no symptoms, other (neck tenderness). Denies: dysphasia Pulmonary: Reports: shortness of breath. Denies: pleuritic chest pain Cardiovascular: Denies: Dyspnea on Exertion Gastrointestinal: Denies: Nausea, Vomiting Genitourinary: Reports: no symptoms Musculoskeletal: Reports: no symptoms Skin: Denies: cyanosis, jaundice, mottled, pallor, diaphoresis Neurological: Denies: Confusion, Dizziness, Difficulty Walking, Weakness, Gait Disturbance Psychiatric: Denies: confusion, depression, anxiety Systems Review Comment:: No overnight or acute issues. He feels much better. He swallows better. He has no new complaints. - Patient Data Vitals - most recent: Last Vital Signs Temp 37.1 C 01/17/17 03:09 Pulse 53 L 01/17/17 03:09 Resp 14 01/17/17 03:09 BP 127/75 01/17/17 03:09 Pulse Ox 94 L 01/17/17 03:09 Weight - most recent: 89.222 kg I&O - last 24 hours: Intake & Output 01/16/17 01/16/17 01/17/17 14:59 22:59 06:59 Intake Total 2640 2300 Balance 2640 2300 Lab Results last 24 hrs: Laboratory Results - last 24 hr 01/16/17 01/16/17 01/17/17 Range/Units 05:50 05:50 06:10 WBC 14.07 H 11.16 H (4.23-9.07) K/mm3 RBC 4.30 L 4.56 L (4.63-6.08) M/mm3 Hgb 12.7 L 13.3 L (13.7-17.5) gm/L Hct 38.4 L 39.9 L (40.1-51.0) % MCV 89.3 87.5 (79.0-92.2) fl MCH 29.5 29.2 (25.7-32.2) pg MCHC 33.1 33.3 (32.2-35.5) g/dl RDW Std Deviation 42.7 42.2 (35.1-43.9) fL Plt Count 175 214 (163-337) K/mm3 MPV 11.2 11.6 (9.4-12.3) fl Neut % (Auto) 87.8 H 86.4 H (34.0-67.9) % Lymph % (Auto) 4.8 L 7.3 L (21.8-53.1) % [place] % (Auto) 7.0 5.6 (5.3-12.2) % Eos % (Auto) 0 L 0 L (0.8-7.0) Baso % (Auto) 0.1 0.2 (0.1-1.2) % Neut # (Auto) 12.36 H 9.64 H (1.78-5.38) K/mm3 Lymph # (Auto) 0.67 L 0.82 L (1.32-3.57) K/mm3 [place] # (Auto) 0.99 H 0.62 (0.30-0.82) K/mm3 Eos # (Auto) 0.00 L 0.00 L (0.04-0.54) K/mm3 Baso # (Auto) 0.01 0.02 (0.01-0.08) K/mm3 Manual Slide Review Abnormal smear Sodium 137 (136-145) mEq/L Potassium 4.3 (3.5-5.1) mEq/L Chloride 104 (98-107) mEq/L Carbon Dioxide 22 (21-32) mEq/L Anion Gap 15.3 H (5-15) BUN 16 (7-18) mg/dL Creatinine 0.8 (0.7-1.3) mg/dL Est Cr Clr Drug Dosing 114.24 mL/min Estimated GFR (MDRD) > 60 (>60) mL/min BUN/Creatinine Ratio 20.0 H (14-18) Glucose 151 H (74-106) mg/dL Calcium 8.2 L (8.5-10.1) mg/dL Magnesium 1.9 (1.8-2.4) mg/dl C-Reactive Protein 17.7 H* (<1.0) mg/dL Med Orders - Current: Current Medications Acetaminophen (Tylenol) 650 mg PO Q4H PRN PRN Reason: Pain (Mild 1-3)/fever Hydrocodone Bitart/Acetaminophen (Bowman 325-5 Mg) 1 tab PO Q4H PRN PRN Reason: Pain (moderate 4-6) Last Admin: 01/16/17 21:22 Dose: 1 tab Albuterol/Ipratropium (Duoneb 3.0-0.5 Mg/3 Ml) 3 ml NEB Q4H PRN PRN Reason: Shortness Of Breath/wheezing Benzonatate (Tessalon Perles) 200 mg PO TID [facility] Last Admin: 01/16/17 21:22 Dose: 200 mg Bisacodyl (Dulcolax) 5 mg PO DAILY PRN PRN Reason: Constipation Al Hydroxide/Mg Hydroxide 30 (ml/ Lidocaine HCl 15 ml) 0 ml PO Q6HR [facility] Last Admin: 01/16/17 23:45 Dose: 45 ml Dexamethasone (Dexamethasone) 4 mg IVPUSH Q6H [facility] Last Admin: 01/17/17 04:24 Dose: 4 mg Docusate Sodium (Colace) 100 mg PO BID PRN PRN Reason: Constipation Hydralazine HCl (Apresoline) 20 mg IVPUSH Q4H PRN PRN Reason: Hypertension Hydromorphone HCl (Dilaudid) 1 mg IVPUSH Q4H PRN PRN Reason: Pain (severe 7-10) Last Admin: 01/16/17 05:03 Dose: 1 mg Sodium Chloride (Normal Saline) 1,000 mls @ 125 mls/hr IV ASDIRECTED [facility] Last Admin: 01/16/17 23:45 Dose: 125 mls/hr Clindamycin Phosphate 900 mg/ (Sodium Chloride) 106 mls @ 100 mls/hr IV Q6H [facility] Last Admin: 01/17/17 03:06 Dose: 100 mls/hr Promethazine HCl 12.5 mg/ (Sodium Chloride) 50.5 mls @ 100 mls/hr IV Q6H PRN PRN Reason: Nausea/Vomiting Ceftriaxone Sodium 2 gm/ (Sodium Chloride) 100 mls @ 200 mls/hr IV Q24H [facility] Last Admin: 01/16/17 22:42 Dose: 200 mls/hr Piperacillin Sod/Tazobactam (Sod 4.5 gm/ Sodium Chloride) 100 mls @ 25 mls/hr IV Q8H [facility] Last Admin: 01/17/17 02:58 Dose: 25 mls/hr Lorazepam (Ativan) 1 mg IV Q6H PRN PRN Reason: Anxiety Magnesium Sulfate (Pharmacy To Dose - Magnesium Replacement) 1 dose .XX ASDIRECTED [facility] Metoprolol Tartrate (Lopressor) 5 mg IVPUSH Q4H PRN PRN Reason: Tachycardia Ondansetron HCl (Zofran) 4 mg IV Q6H PRN PRN Reason: Nausea/Vomiting Polyethylene Glycol (Miralax) 17 gm PO DAILY PRN PRN Reason: Constipation Potassium Chloride (Pharmacy To Dose - Potassium Replacement) 1 dose .XX ASDIRECTED [facility] Saccharomyces Boulardii (Florastor) 500 mg PO TID [facility] Last Admin: 01/16/17 21:08 Dose: 500 mg Senna/Docusate Sodium (Senna Plus) 1 tab PO BID PRN PRN Reason: Constipation Sodium Chloride (Saline Flush) 10 ml FLUSH ASDIRECTED PRN PRN Reason: Keep Vein Open Last Admin: 01/15/17 20:43 Dose: 10 ml Sodium Chloride (Saline Flush) 10 ml FLUSH ONETIME PRN PRN Reason: IV FLUSH Last Admin: 01/15/17 21:09 Dose: 10 ml Temazepam (Restoril) 30 mg PO BEDTIME PRN PRN Reason: Sleep Last Admin: 01/16/17 00:18 Dose: 30 mg Discontinued Medications Dexamethasone (Dexamethasone) 10 mg IVPUSH ONETIME ONE Stop: 01/15/17 22:31 Last Admin: 01/15/17 22:59 Dose: 10 mg Hydromorphone HCl (Dilaudid) 1 mg IVPUSH ONETIME ONE Stop: 01/15/17 20:12 Last Admin: 01/15/17 20:42 Dose: 1 mg Sodium Chloride (Normal Saline) 1,000 mls @ 999 mls/hr IV ONETIME ONE Stop: 01/15/17 19:49 Last Admin: 01/15/17 19:11 Dose: 999 mls/hr Clindamycin Phosphate 900 mg/ (Sodium Chloride) 106 mls @ 100 mls/hr IV ONETIME ONE Stop: 01/15/17 23:10 Last Admin: 01/15/17 22:21 Dose: 100 mls/hr Vancomycin HCl 1 gm/ Sodium (Chloride) 250 mls @ 250 mls/hr IV ONETIME ONE Stop: 01/15/17 23:23 Last Admin: 01/15/17 23:23 Dose: Not Given Piperacillin Sod/Tazobactam (Sod 4.5 gm/ Sodium Chloride) 100 mls @ 200 mls/hr IV ONETIME ONE Stop: 01/16/17 17:44 Last Admin: 01/16/17 18:22 Dose: 200 mls/hr Iopamidol (Isovue-300 (61%)) 80 ml IVPUSH ONETIME ONE Stop: 01/15/17 20:31 Last Admin: 01/15/17 21:08 Dose: 80 ml Ketorolac Tromethamine (Toradol) 30 mg IVPUSH ONETIME ONE Stop: 01/15/17 18:50 Last Admin: 01/15/17 19:10 Dose: 30 mg Lidocaine HCl (Xylocaine 2% Viscous) 15 ml PO ONETIME ONE Stop: 01/15/17 18:50 Last Admin: 01/15/17 19:11 Dose: 15 ml Saccharomyces Boulardii (Florastor) 250 mg PO TID [facility] Last Admin: 01/16/17 09:04 Dose: 250 mg Saccharomyces Boulardii (Florastor) 250 mg PO BID [facility]IVA - Exam General: alert, oriented, cooperative, no acute distress HEENT: Pupils equal, Pupils reactive, Mucous membr. moist/pink Neck: supple, trachea midline, no JVD, no thyromegaly Lungs: Clear to auscultation, Normal respiratory effort Cardiovascular: Regular Rate, Regular Rhythm Abdomen: bowel sounds present, soft, no tenderness, no distension (Male) Exam: Deferred Back Exam: Normal Inspection, Decreased Range of Motion Extremities: no edema, normal pulses, no tenderness/swelling, no clubbing, no cyanosis, no calf tenderness Peripheral Pulses: 3+: Posterior Tibial (L), Posterior Tibial (R), Dorsalis Pedis (L), Dorsalis Pedis (R) Skin: warm, dry, intact Neurological: no new focal deficit Psy/Mental Status: alert, normal affect, normal mood - Problem List Review Problem List Initiated/Reviewed/Updated: Yes - My Orders Last 24 Hours: My Active Orders 01/16/17 12:00 Alum Hydrox/Mag Hydrox/Simeth [Mag-Al Plus] 30 ml Lidocaine 2% [Xylocaine 2% Viscous] 15 ml PO Q6HR 01/16/17 15:00 Benzonatate [Tessalon Perles] 200 mg PO TID 01/16/17 21:00 Saccharomyces Boulardii [Florastor] 500 mg PO TID 01/16/17 Dinner Full Liquid Diet [DIET] 01/17/17 02:00 Piperacillin/Tazobactam [Zosyn] 4.5 gm Sodium Chloride 0.9% [Normal Saline] 100 ml IV Q8H - Plan Plan:: Assessment/Plan: Acute: Retropharyngeal Abscess with Adenoiditis, Improving - He does not smoke - No hx/o chronic URI or sick contact - Received Clindamycin and Vancomycin in ED - Continue Cleocin 900 mg IV Q8, Rocephin 2 gram IV daily - Oral Probiotic - Clear liquids and advanced as tolerated Mild Dysphagia, Improving - No respiratory compromise - GI cocktail Q6H PRN Gram Negative Cocco-Bacilli Bacteremia - Blood Culture x 2 pos - Added IV Zosyn 4gram IV Q6 for pharmacy to dose Plan: He is clinically stable Continue current treatment Routine AM Labs Monitor for Respiratory Issues Additional orders as above LOS anticipate > 96 hrs due to bacteremia. Needs a repeat blood cx with negative results before he can be discharged
[2017-01-17] MEDS: Alum Hydrox/Mag Hydrox/Simeth 30 ML, Lidocaine 2% 15 ML PO SCH ×8 (07:19→23:42)
[2017-01-17] MEDS: Benzonatate 100 MG Cap PO SCH ×3 (09:00→21:08)
[2017-01-17] MEDS: Saccharomyces Boulardii (Probiotic) 250 MG Cap PO SCH ×2 (09:00→21:09)
[2017-01-17] MEDS: Acetaminophen/HYDROcodone 325-5 MG Tab PO PRN ×2 (09:00→21:07)
[2017-01-17] MEDS: HYDROmorphone 1 MG/ML Syringe IVPUSH PRN ×2 (09:04→22:09)
[2017-01-17] MEDS: Sodium Chloride 0.9% 1,000 ML IV SCH (16:13)
[2017-01-17] MEDS: Calcium Carbonate 500 MG Tab.Chew PO PRN (16:14)
[2017-01-17] MEDS: cefTRIAXone 2 GM in Sodium Chloride 0.9% 100 ML IV SCH (23:01)
[2017-01-18] MEDS: Piperacillin/Tazobactam 4.5 GM in Sodium Chloride 0.9% 100 ML IV SCH ×3 (02:30→17:01)
[2017-01-18] MEDS: Sodium Chloride 0.9% 1,000 ML IV SCH ×3 (04:30→16:49)
[2017-01-18] MEDS: Clindamycin Phosphate 900 MG in Sodium Chloride 0.9% 100 ML IV SCH (04:30)
[2017-01-18] MEDS: Alum Hydrox/Mag Hydrox/Simeth 30 ML, Lidocaine 2% 15 ML PO SCH ×6 (05:19→17:01)
[2017-01-18] MEDS: Dexamethasone 4 MG/ML SDV IVPUSH SCH (05:26)
[2017-01-18] MEDS: Saccharomyces Boulardii (Probiotic) 250 MG Cap PO SCH ×2 (08:46→22:32)
[2017-01-18] MEDS: Benzonatate 100 MG Cap PO SCH ×3 (08:46→22:30)
[2017-01-18] MEDS: Acetaminophen/HYDROcodone 325-5 MG Tab PO PRN (08:46)
[2017-01-18] MEDS ORDERED: Temazepam 30 MG Cap PO PRN (09:02)
[2017-01-18] MEDS: HYDROmorphone 1 MG/ML Syringe IVPUSH PRN ×2 (11:02→22:34)
--- NOTE | 2017-01-18 11:55 | PCM.PN ---
<January Looney - Last Filed: 01/18/17 12:01> - General Info Date of Service: 01/18/17 Admission Dx/Problem (Free Text): Retropharyngeal abscess and adenoiditis Patient seen this morning in team rounding; feeling much better. Neck pain is resolving, sore throat improved also. No complaints this morning. VSS; labs improved- stabilizing. Functional Status: Reports: pain controlled, tolerating diet (no difficulty with swallowing), ambulating, urinating - Review of Systems General: Reports: No Symptoms HEENT: Reports: sore throat. Denies: dysphasia, ear pain, headaches, sinus congestion Pulmonary: Reports: no symptoms Cardiovascular: Reports: No Symptoms Gastrointestinal: Reports: No symptoms Genitourinary: Reports: no symptoms Neurological: Reports: No Symptoms Psychiatric: Reports: no symptoms - Patient Data Vitals - most recent: Last Vital Signs Temp 97.9 F 01/18/17 08:03 Pulse 49 L 01/18/17 08:03 Resp 18 01/18/17 08:03 BP 119/75 01/18/17 08:03 Pulse Ox 97 01/18/17 08:03 Weight - most recent: 89.222 kg I&O - last 24 hours: Intake & Output 01/17/17 01/18/17 01/18/17 22:59 06:59 14:59 Intake Total 3760 2448 120 Balance 3760 2448 120 Lab Results last 24 hrs: Laboratory Results - last 24 hr 01/18/17 01/18/17 Range/Units 06:30 06:30 WBC 9.25 H (4.23-9.07) K/mm3 RBC 4.39 L (4.63-6.08) M/mm3 Hgb 12.8 L (13.7-17.5) gm/L Hct 39.0 L (40.1-51.0) % MCV 88.8 (79.0-92.2) fl MCH 29.2 (25.7-32.2) pg MCHC 32.8 (32.2-35.5) g/dl RDW Std Deviation 43.7 (35.1-43.9) fL Plt Count 216 (163-337) K/mm3 MPV 11.3 (9.4-12.3) fl Neut % (Auto) 80.8 H (34.0-67.9) % Lymph % (Auto) 9.9 L (21.8-53.1) % [place] % (Auto) 8.0 (5.3-12.2) % Eos % (Auto) 0 L (0.8-7.0) Baso % (Auto) 0.2 (0.1-1.2) % Neut # (Auto) 7.47 H (1.78-5.38) K/mm3 Lymph # (Auto) 0.92 L (1.32-3.57) K/mm3 [place] # (Auto) 0.74 (0.30-0.82) K/mm3 Eos # (Auto) 0.00 L (0.04-0.54) K/mm3 Baso # (Auto) 0.02 (0.01-0.08) K/mm3 Manual Slide Review Abnormal smear Sodium 137 (136-145) mEq/L Potassium 4.7 (3.5-5.1) mEq/L Chloride 105 (98-107) mEq/L Carbon Dioxide 24 (21-32) mEq/L Anion Gap 12.7 (5-15) BUN 19 H (7-18) mg/dL Creatinine 0.9 (0.7-1.3) mg/dL Est Cr Clr Drug Dosing 101.55 mL/min Estimated GFR (MDRD) > 60 (>60) mL/min BUN/Creatinine Ratio 21.1 H (14-18) Glucose 132 H (74-106) mg/dL Calcium 8.1 L (8.5-10.1) mg/dL Magnesium 2.1 (1.8-2.4) mg/dl C-Reactive Protein 8.0 H* (<1.0) mg/dL Med Orders - Current: Current Medications Acetaminophen (Tylenol) 650 mg PO Q4H PRN PRN Reason: Pain (Mild 1-3)/fever Hydrocodone Bitart/Acetaminophen ([place] 325-5 Mg) 1 tab PO Q4H PRN PRN Reason: Pain (moderate 4-6) Last Admin: 01/18/17 08:46 Dose: 1 tab Albuterol/Ipratropium (Duoneb 3.0-0.5 Mg/3 Ml) 3 ml NEB Q4H PRN PRN Reason: Shortness Of Breath/wheezing Benzonatate (Tessalon Perles) 200 mg PO TID [facility] Last Admin: 01/18/17 08:46 Dose: 200 mg Bisacodyl (Dulcolax) 5 mg PO DAILY PRN PRN Reason: Constipation Calcium Carbonate/Glycine (Tums) 1,000 mg PO Q2HR PRN PRN Reason: Indigestion Last Admin: 01/17/17 16:14 Dose: 1,000 mg Al Hydroxide/Mg Hydroxide 30 (ml/ Lidocaine HCl 15 ml) 0 ml PO Q6HR [facility] Last Admin: 01/18/17 05:19 Dose: Not Given Docusate Sodium (Colace) 100 mg PO BID PRN PRN Reason: Constipation Hydralazine HCl (Apresoline) 20 mg IVPUSH Q4H PRN PRN Reason: Hypertension Hydromorphone HCl (Dilaudid) 1 mg IVPUSH Q4H PRN PRN Reason: Pain (severe 7-10) Last Admin: 01/18/17 11:02 Dose: 1 mg Sodium Chloride (Normal Saline) 1,000 mls @ 125 mls/hr IV ASDIRECTED [facility] Last Admin: 01/18/17 08:45 Dose: 125 mls/hr Promethazine HCl 12.5 mg/ (Sodium Chloride) 50.5 mls @ 100 mls/hr IV Q6H PRN PRN Reason: Nausea/Vomiting Piperacillin Sod/Tazobactam (Sod 4.5 gm/ Sodium Chloride) 100 mls @ 25 mls/hr IV Q8H [facility] Last Admin: 01/18/17 10:08 Dose: 25 mls/hr Lorazepam (Ativan) 1 mg IV Q6H PRN PRN Reason: Anxiety Metoprolol Tartrate (Lopressor) 5 mg IVPUSH Q4H PRN PRN Reason: Tachycardia Ondansetron HCl (Zofran) 4 mg IV Q6H PRN PRN Reason: Nausea/Vomiting Polyethylene Glycol (Miralax) 17 gm PO DAILY PRN PRN Reason: Constipation Prednisone (Prednisone) 20 mg PO DAILY [facility] Stop: 01/23/17 09:01 Saccharomyces Boulardii (Florastor) 250 mg PO BID [facility] Last Admin: 01/18/17 08:46 Dose: 250 mg Senna/Docusate Sodium (Senna Plus) 1 tab PO BID PRN PRN Reason: Constipation Sodium Chloride (Saline Flush) 10 ml FLUSH ASDIRECTED PRN PRN Reason: Keep Vein Open Last Admin: 01/15/17 20:43 Dose: 10 ml Temazepam (Restoril) 30 mg PO BEDTIME PRN PRN Reason: Sleep Discontinued Medications Dexamethasone (Dexamethasone) 10 mg IVPUSH ONETIME ONE Stop: 01/15/17 22:31 Last Admin: 01/15/17 22:59 Dose: 10 mg Dexamethasone (Dexamethasone) 4 mg IVPUSH Q6H [facility] Last Admin: 01/18/17 05:26 Dose: 4 mg Hydromorphone HCl (Dilaudid) 1 mg IVPUSH ONETIME ONE Stop: 01/15/17 20:12 Last Admin: 01/15/17 20:42 Dose: 1 mg Sodium Chloride (Normal Saline) 1,000 mls @ 999 mls/hr IV ONETIME ONE Stop: 01/15/17 19:49 Last Admin: 01/15/17 19:11 Dose: 999 mls/hr Clindamycin Phosphate 900 mg/ (Sodium Chloride) 106 mls @ 100 mls/hr IV ONETIME ONE Stop: 01/15/17 23:10 Last Admin: 01/15/17 22:21 Dose: 100 mls/hr Vancomycin HCl 1 gm/ Sodium (Chloride) 250 mls @ 250 mls/hr IV ONETIME ONE Stop: 01/15/17 23:23 Last Admin: 01/15/17 23:23 Dose: Not Given Clindamycin Phosphate 900 mg/ (Sodium Chloride) 106 mls @ 100 mls/hr IV Q6H [facility] Last Admin: 01/18/17 04:30 Dose: 100 mls/hr Ceftriaxone Sodium 2 gm/ (Sodium Chloride) 100 mls @ 200 mls/hr IV Q24H [facility] Last Admin: 01/17/17 23:01 Dose: 200 mls/hr Piperacillin Sod/Tazobactam (Sod 4.5 gm/ Sodium Chloride) 100 mls @ 200 mls/hr IV ONETIME ONE Stop: 01/16/17 17:44 Last Admin: 01/16/17 18:22 Dose: 200 mls/hr Iopamidol (Isovue-300 (61%)) 80 ml IVPUSH ONETIME ONE Stop: 01/15/17 20:31 Last Admin: 01/15/17 21:08 Dose: 80 ml Ketorolac Tromethamine (Toradol) 30 mg IVPUSH ONETIME ONE Stop: 01/15/17 18:50 Last Admin: 01/15/17 19:10 Dose: 30 mg Lidocaine HCl (Xylocaine 2% Viscous) 15 ml PO ONETIME ONE Stop: 01/15/17 18:50 Last Admin: 01/15/17 19:11 Dose: 15 ml Magnesium Sulfate (Pharmacy To Dose - Magnesium Replacement) 1 dose .XX ASDIRECTED [facility] Potassium Chloride (Pharmacy To Dose - Potassium Replacement) 1 dose .XX ASDIRECTED [facility] Saccharomyces Boulardii (Florastor) 250 mg PO TID [facility] Last Admin: 01/16/17 09:04 Dose: 250 mg Saccharomyces Boulardii (Florastor) 250 mg PO BID [facility] Saccharomyces Boulardii (Florastor) 500 mg PO TID [facility] Last Admin: 01/16/17 21:08 Dose: 500 mg Sodium Chloride (Saline Flush) 10 ml FLUSH ONETIME PRN PRN Reason: IV FLUSH Last Admin: 01/15/17 21:09 Dose: 10 ml Temazepam (Restoril) 30 mg PO BEDTIME PRN PRN Reason: Sleep Last Admin: 01/16/17 00:18 Dose: 30 mg - Exam Quality Assessment: DVT prophylaxis General: alert, oriented, cooperative, no acute distress HEENT: Pupils equal, Pupils reactive, EOMI, Mucous membr. moist/pink Neck: supple, no JVD, no thyromegaly. No: lymphadenopathy (mild to minimal to right AC nodes) Lungs: Clear to auscultation, Normal respiratory effort Cardiovascular: Regular Rate, Regular Rhythm Abdomen: bowel sounds present, soft, no tenderness (Male) Exam: Deferred Extremities: no edema Neurological: no new focal deficit Psy/Mental Status: alert, normal affect, normal mood - Problem List & Annotations (1) Retropharyngeal abscess SNOMED Code(s): 02630546 Code(s): J39.0 - RETROPHARYNGEAL AND PARAPHARYNGEAL ABSCESS Status: Acute Priority: High Current Visit: Yes (2) Adenitis, acute SNOMED Code(s): 05967497 Code(s): L04.9 - ACUTE LYMPHADENITIS, UNSPECIFIED Status: Acute Priority : High Current Visit: Yes - Problem List Review Problem List Initiated/Reviewed/Updated: Yes - My Orders Last 24 Hours: My Active Orders 01/19/17 05:11 BASIC METABOLIC PANEL,BMP [CHEM] AM C-REACTIVE PROTEIN [CHEM] AM CBC WITH AUTO DIFF [HEME] AM 01/19/17 09:00 predniSONE 20 mg PO DAILY - Plan Plan:: Assessment/Plan: Acute: Retropharyngeal Abscess with Adenoiditis, Improving - He does not smoke - No hx/o chronic URI or sick contact - Received Clindamycin and Vancomycin in ED; will cont with zosyn at this time, DC others; having good response thus far - Oral Probiotic - Tolerating regular diet without difficulty - Has seen dentist in the last 6 months for cleaning and was without concerns Mild Dysphagia---resolved - No respiratory compromise - GI cocktail Q6H PRN Gram Negative Cocco-Bacilli Bacteremia - Blood Culture x 2 pos - Added IV Zosyn 4gram IV Q6 for pharmacy to dose - Repeat BC ordered for today - DC pending results Plan: He is clinically stable Continue current treatment Routine AM Labs Monitor for Respiratory Issues GI/DVT prophylax CM/SW for assitance with DC planning- will need to establish with PCP for follow up Additional orders as above LOS anticipate > 96 hrs due to bacteremia. Needs a repeat blood cx with negative results before he can be discharged <Mai Hernandez - Last Filed: 01/18/17 14:15> - Patient Data Vitals - most recent: Last Vital Signs Temp 36.6 C 01/18/17 08:03 Pulse 49 L 01/18/17 08:03 Resp 18 01/18/17 08:03 BP 119/75 01/18/17 08:03 Pulse Ox 97 01/18/17 08:03 I&O - last 24 hours: Intake & Output 01/17/17 01/18/17 01/18/17 22:59 06:59 14:59 Intake Total 3760 2448 120 Balance 3760 2448 120 Lab Results last 24 hrs: Laboratory Results - last 24 hr 01/18/17 01/18/17 Range/Units 06:30 06:30 WBC 9.25 H (4.23-9.07) K/mm3 RBC 4.39 L (4.63-6.08) M/mm3 Hgb 12.8 L (13.7-17.5) gm/L Hct 39.0 L (40.1-51.0) % MCV 88.8 (79.0-92.2) fl MCH 29.2 (25.7-32.2) pg MCHC 32.8 (32.2-35.5) g/dl RDW Std Deviation 43.7 (35.1-43.9) fL Plt Count 216 (163-337) K/mm3 MPV 11.3 (9.4-12.3) fl Neut % (Auto) 80.8 H (34.0-67.9) % Lymph % (Auto) 9.9 L (21.8-53.1) % [place] % (Auto) 8.0 (5.3-12.2) % Eos % (Auto) 0 L (0.8-7.0) Baso % (Auto) 0.2 (0.1-1.2) % Neut # (Auto) 7.47 H (1.78-5.38) K/mm3 Lymph # (Auto) 0.92 L (1.32-3.57) K/mm3 [place] # (Auto) 0.74 (0.30-0.82) K/mm3 Eos # (Auto) 0.00 L (0.04-0.54) K/mm3 Baso # (Auto) 0.02 (0.01-0.08) K/mm3 Manual Slide Review Abnormal smear Sodium 137 (136-145) mEq/L Potassium 4.7 (3.5-5.1) mEq/L Chloride 105 (98-107) mEq/L Carbon Dioxide 24 (21-32) mEq/L Anion Gap 12.7 (5-15) BUN 19 H (7-18) mg/dL Creatinine 0.9 (0.7-1.3) mg/dL Est Cr Clr Drug Dosing 101.55 mL/min Estimated GFR (MDRD) > 60 (>60) mL/min BUN/Creatinine Ratio 21.1 H (14-18) Glucose 132 H (74-106) mg/dL Calcium 8.1 L (8.5-10.1) mg/dL Magnesium 2.1 (1.8-2.4) mg/dl C-Reactive Protein 8.0 H* (<1.0) mg/dL Med Orders - Current: Current Medications Acetaminophen (Tylenol) 650 mg PO Q4H PRN PRN Reason: Pain (Mild 1-3)/fever Hydrocodone Bitart/Acetaminophen ([place] 325-5 Mg) 1 tab PO Q4H PRN PRN Reason: Pain (moderate 4-6) Last Admin: 01/18/17 08:46 Dose: 1 tab Albuterol/Ipratropium (Duoneb 3.0-0.5 Mg/3 Ml) 3 ml NEB Q4H PRN PRN Reason: Shortness Of Breath/wheezing Benzonatate (Tessalon Perles) 200 mg PO TID [facility] Last Admin: 01/18/17 08:46 Dose: 200 mg Bisacodyl (Dulcolax) 5 mg PO DAILY PRN PRN Reason: Constipation Calcium Carbonate/Glycine (Tums) 1,000 mg PO Q2HR PRN PRN Reason: Indigestion Last Admin: 01/17/17 16:14 Dose: 1,000 mg Al Hydroxide/Mg Hydroxide 30 (ml/ Lidocaine HCl 15 ml) 0 ml PO Q6HR [facility] Last Admin: 01/18/17 12:53 Dose: 45 ml Docusate Sodium (Colace) 100 mg PO BID PRN PRN Reason: Constipation Hydralazine HCl (Apresoline) 20 mg IVPUSH Q4H PRN PRN Reason: Hypertension Hydromorphone HCl (Dilaudid) 1 mg IVPUSH Q4H PRN PRN Reason: Pain (severe 7-10) Last Admin: 01/18/17 11:02 Dose: 1 mg Sodium Chloride (Normal Saline) 1,000 mls @ 125 mls/hr IV ASDIRECTED [facility] Last Admin: 01/18/17 08:45 Dose: 125 mls/hr Promethazine HCl 12.5 mg/ (Sodium Chloride) 50.5 mls @ 100 mls/hr IV Q6H PRN PRN Reason: Nausea/Vomiting Piperacillin Sod/Tazobactam (Sod 4.5 gm/ Sodium Chloride) 100 mls @ 25 mls/hr IV Q8H [facility] Last Admin: 01/18/17 10:08 Dose: 25 mls/hr Lorazepam (Ativan) 1 mg IV Q6H PRN PRN Reason: Anxiety Metoprolol Tartrate (Lopressor) 5 mg IVPUSH Q4H PRN PRN Reason: Tachycardia Ondansetron HCl (Zofran) 4 mg IV Q6H PRN PRN Reason: Nausea/Vomiting Polyethylene Glycol (Miralax) 17 gm PO DAILY PRN PRN Reason: Constipation Prednisone (Prednisone) 20 mg PO DAILY [facility] Stop: 01/23/17 09:01 Saccharomyces Boulardii (Florastor) 250 mg PO BID [facility] Last Admin: 01/18/17 08:46 Dose: 250 mg Senna/Docusate Sodium (Senna Plus) 1 tab PO BID PRN PRN Reason: Constipation Sodium Chloride (Saline Flush) 10 ml FLUSH ASDIRECTED PRN PRN Reason: Keep Vein Open Last Admin: 01/15/17 20:43 Dose: 10 ml Temazepam (Restoril) 30 mg PO BEDTIME PRN PRN Reason: Sleep Discontinued Medications Dexamethasone (Dexamethasone) 10 mg IVPUSH ONETIME ONE Stop: 01/15/17 22:31 Last Admin: 01/15/17 22:59 Dose: 10 mg Dexamethasone (Dexamethasone) 4 mg IVPUSH Q6H [facility] Last Admin: 01/18/17 05:26 Dose: 4 mg Hydromorphone HCl (Dilaudid) 1 mg IVPUSH ONETIME ONE Stop: 01/15/17 20:12 Last Admin: 01/15/17 20:42 Dose: 1 mg Sodium Chloride (Normal Saline) 1,000 mls @ 999 mls/hr IV ONETIME ONE Stop: 01/15/17 19:49 Last Admin: 01/15/17 19:11 Dose: 999 mls/hr Clindamycin Phosphate 900 mg/ (Sodium Chloride) 106 mls @ 100 mls/hr IV ONETIME ONE Stop: 01/15/17 23:10 Last Admin: 01/15/17 22:21 Dose: 100 mls/hr Vancomycin HCl 1 gm/ Sodium (Chloride) 250 mls @ 250 mls/hr IV ONETIME ONE Stop: 01/15/17 23:23 Last Admin: 01/15/17 23:23 Dose: Not Given Clindamycin Phosphate 900 mg/ (Sodium Chloride) 106 mls @ 100 mls/hr IV Q6H [facility] Last Admin: 01/18/17 04:30 Dose: 100 mls/hr Ceftriaxone Sodium 2 gm/ (Sodium Chloride) 100 mls @ 200 mls/hr IV Q24H [facility] Last Admin: 01/17/17 23:01 Dose: 200 mls/hr Piperacillin Sod/Tazobactam (Sod 4.5 gm/ Sodium Chloride) 100 mls @ 200 mls/hr IV ONETIME ONE Stop: 01/16/17 17:44 Last Admin: 01/16/17 18:22 Dose: 200 mls/hr Iopamidol (Isovue-300 (61%)) 80 ml IVPUSH ONETIME ONE Stop: 01/15/17 20:31 Last Admin: 01/15/17 21:08 Dose: 80 ml Ketorolac Tromethamine (Toradol) 30 mg IVPUSH ONETIME ONE Stop: 01/15/17 18:50 Last Admin: 01/15/17 19:10 Dose: 30 mg Lidocaine HCl (Xylocaine 2% Viscous) 15 ml PO ONETIME ONE Stop: 01/15/17 18:50 Last Admin: 01/15/17 19:11 Dose: 15 ml Magnesium Sulfate (Pharmacy To Dose - Magnesium Replacement) 1 dose .XX ASDIRECTED [facility] Potassium Chloride (Pharmacy To Dose - Potassium Replacement) 1 dose .XX ASDIRECTED [facility] Saccharomyces Boulardii (Florastor) 250 mg PO TID [facility] Last Admin: 01/16/17 09:04 Dose: 250 mg Saccharomyces Boulardii (Florastor) 250 mg PO BID [facility] Saccharomyces Boulardii (Florastor) 500 mg PO TID [facility] Last Admin: 01/16/17 21:08 Dose: 500 mg Sodium Chloride (Saline Flush) 10 ml FLUSH ONETIME PRN PRN Reason: IV FLUSH Last Admin: 01/15/17 21:09 Dose: 10 ml Temazepam (Restoril) 30 mg PO BEDTIME PRN PRN Reason: Sleep Last Admin: 01/16/17 00:18 Dose: 30 mg - My Orders Last 24 Hours: My Active Orders 01/18/17 11:41 Overnight Pulse Oximetry [Overnight Pulse Oximetry] [RC] Click To Edit - Plan Plan:: DC 24-48 hours; STD eval added.
--- NOTE | 2017-01-18 14:37 | CT ---
CT neck Technique: Multiple axial sections through the neck were obtained. Intravenous contrast was utilized. Reconstructed sagittal and coronal images were reviewed. Findings: Prevertebral soft tissue swelling is identified. Low density edema and phlegmon seen within the prevertebral soft tissues. Low-density and soft tissue thickening seen within the parapharyngeal regions extending more prominent on the left side inferiorly. Adenoidal tissues are also prominent in size presumably on an inflammatory basis. Epiglottis is thickened as well as thickening of the aryepiglottic folds. Bone window settings were reviewed which appear within normal limits for the patient's age. Incidental note of mild degenerative change within the cervical spine. There is narrowing of the laryngeal airway which may relate to the phase of inspiration versus expiration although this may also be narrowed on an inflammatory basis. Impression: 1. Prominent prevertebral soft tissue swelling with low-density phlegmon. Difficult to exclude early abscess formation. 2. Thickening of the epiglottis and aryepiglottic folds suspicious for epiglottitis. 3. Prominent adenoidal soft tissues likely inflammatory in etiology. 4. Mild thickening and edema within the parapharyngeal soft tissues more prominent on the left side and extending inferior to the level of the epiglottis. 5. Narrowing of the laryngeal airway as described above. Diagnostic code #5 Agree with preliminary report issued by [employer] ([employer] preliminary report dictated on 01/15/17, 10:39 PM Central Time)
[2017-01-18 21:49] LABS: C. TRACHOMATIS BY PCR NOT DETECTED; N. GONORRHOEAE BY PCR NOT DETECTED
[2017-01-18] MEDS: Calcium Carbonate 500 MG Tab.Chew PO PRN (22:30)
[2017-01-19] MEDS: Piperacillin/Tazobactam 4.5 GM in Sodium Chloride 0.9% 100 ML IV SCH ×2 (01:03→11:28)
[2017-01-19] MEDS: Sodium Chloride 0.9% 1,000 ML IV SCH ×2 (01:03→09:11)
[2017-01-19] MEDS: Alum Hydrox/Mag Hydrox/Simeth 30 ML, Lidocaine 2% 15 ML PO SCH ×6 (01:08→12:25)
[2017-01-19] MEDS: HYDROmorphone 1 MG/ML Syringe IVPUSH PRN ×2 (04:26→09:12)
--- NOTE | 2017-01-19 08:55 | PCM.PN ---
- General Info Date of Service: 01/19/17 Admission Dx/Problem (Free Text): Retropharyngeal abscess and adenoiditis Patient seen this morning in team rounding; feeling much better. Neck pain continues but is posterior rather than anterior or rt sided where prior abscess was located. Feels it is more muscular from being sedentary. Pain control with norco was not adequate, required dilaudid overnight for neck pain as noted. VSS; labs improved- stabilizing- WBC WNL; CRP improved. Functional Status: Reports: tolerating diet, ambulating, urinating. Denies: pain controlled, new symptoms - Review of Systems General: Reports: No Symptoms. Denies: Fever, Fatigue HEENT: Reports: sore throat ("feels like a popped blister") Pulmonary: Reports: no symptoms Cardiovascular: Reports: No Symptoms Gastrointestinal: Reports: No symptoms Genitourinary: Reports: no symptoms Musculoskeletal: Reports: neck pain (muscular in nature) Skin: Reports: no symptoms Neurological: Reports: No Symptoms Psychiatric: Reports: no symptoms - Patient Data Vitals - most recent: Last Vital Signs Temp 97.3 F 01/19/17 08:30 Pulse 78 01/19/17 08:30 Resp 18 01/19/17 08:30 BP 127/74 01/19/17 08:30 Pulse Ox 95 01/19/17 08:30 Weight - most recent: 197 lb 3.2 oz I&O - last 24 hours: Intake & Output 01/18/17 01/19/17 01/19/17 22:59 06:59 14:59 Intake Total 1874 2446 Balance 1874 2446 Lab Results last 24 hrs: Laboratory Results - last 24 hr 01/18/17 01/19/17 01/19/17 Range/Units 17:57 05:23 05:23 WBC 7.54 (4.23-9.07) K/mm3 RBC 4.47 L (4.63-6.08) M/mm3 Hgb 13.0 L (13.7-17.5) gm/L Hct 39.9 L (40.1-51.0) % MCV 89.3 (79.0-92.2) fl MCH 29.1 (25.7-32.2) pg MCHC 32.6 (32.2-35.5) g/dl RDW Std Deviation 44.6 H (35.1-43.9) fL Plt Count 176 (163-337) K/mm3 MPV 11.1 (9.4-12.3) fl Neut % (Auto) 67.3 (34.0-67.9) % Lymph % (Auto) 21.8 (21.8-53.1) % [place] % (Auto) 8.0 (5.3-12.2) % Eos % (Auto) 0.4 L (0.8-7.0) Baso % (Auto) 0.1 (0.1-1.2) % Neut # (Auto) 5.08 (1.78-5.38) K/mm3 Lymph # (Auto) 1.64 (1.32-3.57) K/mm3 [place] # (Auto) 0.60 (0.30-0.82) K/mm3 Eos # (Auto) 0.03 L (0.04-0.54) K/mm3 Baso # (Auto) 0.01 (0.01-0.08) K/mm3 Manual Slide Review Abnormal smear Sodium 138 (136-145) mEq/L Potassium 4.0 (3.5-5.1) mEq/L Chloride 105 (98-107) mEq/L Carbon Dioxide 24 (21-32) mEq/L Anion Gap 13.0 (5-15) BUN 19 H (7-18) mg/dL Creatinine 0.9 (0.7-1.3) mg/dL Est Cr Clr Drug Dosing 101.55 mL/min Estimated GFR (MDRD) > 60 (>60) mL/min BUN/Creatinine Ratio 21.1 H (14-18) Glucose 89 (74-106) mg/dL Calcium 8.0 L (8.5-10.1) mg/dL C-Reactive Protein 4.5 H* (<1.0) mg/dL C trachomatis DNA (PCR) Not detected N gonorrhoeae DNA (PCR) Not detected Med Orders - Current: Current Medications Acetaminophen (Tylenol) 650 mg PO Q4H PRN PRN Reason: Pain (Mild 1-3)/fever Hydrocodone Bitart/Acetaminophen (Theresa 325-5 Mg) 1 tab PO Q4H PRN PRN Reason: Pain (moderate 4-6) Last Admin: 01/18/17 08:46 Dose: 1 tab Albuterol/Ipratropium (Duoneb 3.0-0.5 Mg/3 Ml) 3 ml NEB Q4H PRN PRN Reason: Shortness Of Breath/wheezing Benzonatate (Tessalon Perles) 200 mg PO TID [facility] Last Admin: 01/18/17 22:30 Dose: 200 mg Bisacodyl (Dulcolax) 5 mg PO DAILY PRN PRN Reason: Constipation Calcium Carbonate/Glycine (Tums) 1,000 mg PO Q2HR PRN PRN Reason: Indigestion Last Admin: 01/18/17 22:30 Dose: 1,000 mg Al Hydroxide/Mg Hydroxide 30 (ml/ Lidocaine HCl 15 ml) 0 ml PO Q6HR [facility] Last Admin: 01/19/17 07:00 Dose: 45 ml Docusate Sodium (Colace) 100 mg PO BID PRN PRN Reason: Constipation Hydralazine HCl (Apresoline) 20 mg IVPUSH Q4H PRN PRN Reason: Hypertension Hydromorphone HCl (Dilaudid) 1 mg IVPUSH Q4H PRN PRN Reason: Pain (severe 7-10) Last Admin: 01/19/17 04:26 Dose: 1 mg Sodium Chloride (Normal Saline) 1,000 mls @ 125 mls/hr IV ASDIRECTED [facility] Last Admin: 01/19/17 01:03 Dose: 125 mls/hr Promethazine HCl 12.5 mg/ (Sodium Chloride) 50.5 mls @ 100 mls/hr IV Q6H PRN PRN Reason: Nausea/Vomiting Piperacillin Sod/Tazobactam (Sod 4.5 gm/ Sodium Chloride) 100 mls @ 25 mls/hr IV Q8H [facility] Last Admin: 01/19/17 01:03 Dose: 25 mls/hr Lorazepam (Ativan) 1 mg IV Q6H PRN PRN Reason: Anxiety Metoprolol Tartrate (Lopressor) 5 mg IVPUSH Q4H PRN PRN Reason: Tachycardia Ondansetron HCl (Zofran) 4 mg IV Q6H PRN PRN Reason: Nausea/Vomiting Polyethylene Glycol (Miralax) 17 gm PO DAILY PRN PRN Reason: Constipation Prednisone (Prednisone) 20 mg PO DAILY [facility] Stop: 01/23/17 09:01 Saccharomyces Boulardii (Florastor) 250 mg PO BID [facility] Last Admin: 01/18/17 22:32 Dose: 250 mg Senna/Docusate Sodium (Senna Plus) 1 tab PO BID PRN PRN Reason: Constipation Sodium Chloride (Saline Flush) 10 ml FLUSH ASDIRECTED PRN PRN Reason: Keep Vein Open Last Admin: 01/15/17 20:43 Dose: 10 ml Temazepam (Restoril) 30 mg PO BEDTIME PRN PRN Reason: Sleep Discontinued Medications Dexamethasone (Dexamethasone) 10 mg IVPUSH ONETIME ONE Stop: 01/15/17 22:31 Last Admin: 01/15/17 22:59 Dose: 10 mg Dexamethasone (Dexamethasone) 4 mg IVPUSH Q6H [facility] Last Admin: 01/18/17 05:26 Dose: 4 mg Hydromorphone HCl (Dilaudid) 1 mg IVPUSH ONETIME ONE Stop: 01/15/17 20:12 Last Admin: 01/15/17 20:42 Dose: 1 mg Sodium Chloride (Normal Saline) 1,000 mls @ 999 mls/hr IV ONETIME ONE Stop: 01/15/17 19:49 Last Admin: 01/15/17 19:11 Dose: 999 mls/hr Clindamycin Phosphate 900 mg/ (Sodium Chloride) 106 mls @ 100 mls/hr IV ONETIME ONE Stop: 01/15/17 23:10 Last Admin: 01/15/17 22:21 Dose: 100 mls/hr Vancomycin HCl 1 gm/ Sodium (Chloride) 250 mls @ 250 mls/hr IV ONETIME ONE Stop: 01/15/17 23:23 Last Admin: 01/15/17 23:23 Dose: Not Given Clindamycin Phosphate 900 mg/ (Sodium Chloride) 106 mls @ 100 mls/hr IV Q6H [facility] Last Admin: 01/18/17 04:30 Dose: 100 mls/hr Ceftriaxone Sodium 2 gm/ (Sodium Chloride) 100 mls @ 200 mls/hr IV Q24H [facility] Last Admin: 01/17/17 23:01 Dose: 200 mls/hr Piperacillin Sod/Tazobactam (Sod 4.5 gm/ Sodium Chloride) 100 mls @ 200 mls/hr IV ONETIME ONE Stop: 01/16/17 17:44 Last Admin: 01/16/17 18:22 Dose: 200 mls/hr Iopamidol (Isovue-300 (61%)) 80 ml IVPUSH ONETIME ONE Stop: 01/15/17 20:31 Last Admin: 01/15/17 21:08 Dose: 80 ml Ketorolac Tromethamine (Toradol) 30 mg IVPUSH ONETIME ONE Stop: 01/15/17 18:50 Last Admin: 01/15/17 19:10 Dose: 30 mg Lidocaine HCl (Xylocaine 2% Viscous) 15 ml PO ONETIME ONE Stop: 01/15/17 18:50 Last Admin: 01/15/17 19:11 Dose: 15 ml Magnesium Sulfate (Pharmacy To Dose - Magnesium Replacement) 1 dose .XX ASDIRECTED [facility] Potassium Chloride (Pharmacy To Dose - Potassium Replacement) 1 dose .XX ASDIRECTED [facility] Saccharomyces Boulardii (Florastor) 250 mg PO TID [facility] Last Admin: 01/16/17 09:04 Dose: 250 mg Saccharomyces Boulardii (Florastor) 250 mg PO BID [facility] Saccharomyces Boulardii (Florastor) 500 mg PO TID [facility] Last Admin: 01/16/17 21:08 Dose: 500 mg Sodium Chloride (Saline Flush) 10 ml FLUSH ONETIME PRN PRN Reason: IV FLUSH Last Admin: 01/15/17 21:09 Dose: 10 ml Temazepam (Restoril) 30 mg PO BEDTIME PRN PRN Reason: Sleep Last Admin: 01/16/17 00:18 Dose: 30 mg - Exam Quality Assessment: DVT prophylaxis General: alert, oriented, cooperative, no acute distress HEENT: Pupils equal, Pupils reactive, EOMI, Mucous membr. moist/pink Neck: supple. No: lymphadenopathy Lungs: Clear to auscultation, Normal respiratory effort Cardiovascular: Regular Rate, Regular Rhythm Abdomen: bowel sounds present, soft, no tenderness, no distension (Male) Exam: Deferred Back Exam: Normal Inspection Extremities: no edema Peripheral Pulses: 1+: Dorsalis Pedis (L), Dorsalis Pedis (R) Skin: warm, dry, intact Neurological: no new focal deficit Psy/Mental Status: alert, normal affect, normal mood - Problem List & Annotations (1) Retropharyngeal abscess SNOMED Code(s): 89400554 Code(s): J39.0 - RETROPHARYNGEAL AND PARAPHARYNGEAL ABSCESS Status: Acute Priority: High Current Visit: Yes (2) Adenitis, acute SNOMED Code(s): 88045440 Code(s): L04.9 - ACUTE LYMPHADENITIS, UNSPECIFIED Status: Acute Priority : High Current Visit: Yes - Problem List Review Problem List Initiated/Reviewed/Updated: Yes - My Orders Last 24 Hours: My Active Orders 01/18/17 11:59 Blood Culture x2 Reflex Set [OM.PC] Stat 01/18/17 12:15 CULTURE BLOOD [BC] Stat 01/18/17 12:30 CULTURE BLOOD [BC] Stat 01/19/17 09:00 predniSONE 20 mg PO DAILY - Plan Plan:: Assessment/Plan: Acute: Retropharyngeal Abscess with Adenoiditis, Improving - He does not smoke or chew tobacco - No hx/o chronic URI or sick contact - Received Clindamycin and Vancomycin in ED; will cont with zosyn at this time, DC others; having good response thus far; has had 4 days of IV abx, will DC and switch to oral abx in plan for DC home tomorrow pending repeat BC results - Oral Probiotic - Tolerating regular diet without difficulty - Has seen dentist in the last 6 months for cleaning and was without concerns - Muscular neck pain posteriorly; will try flexeril TID PRN Mild Dysphagia---resolved - No respiratory compromise - GI cocktail Q6H PRN Gram Negative Cocco-Bacilli Bacteremia - Blood Culture x 2 pos - Added IV Zosyn 4gram IV Q6 for pharmacy to dose - Repeat BC ordered - DC pending results Nocturnal bradycardia; asymtomatic -Overnight sleep oximetry study- looks unremarkable by my review- will await recommendations. Plan: He is clinically stable Continue current treatment Routine AM Labs Monitor for Respiratory Issues--none thus far GI/DVT prophylax CM/SW for assitance with DC planning- will need to establish with PCP for follow up Additional orders as above LOS anticipate > 96 hrs due to bacteremia. Needs a repeat blood cx with negative results before he can be discharged
[2017-01-19] MEDS: predniSONE 20 MG Tab PO SCH (09:12)
[2017-01-19] MEDS: Benzonatate 100 MG Cap PO SCH ×3 (09:12→20:32)
[2017-01-19] MEDS: Saccharomyces Boulardii (Probiotic) 250 MG Cap PO SCH ×2 (09:12→20:31)
[2017-01-19] MEDS: Cyclobenzaprine 10 MG Tab PO PRN (12:25)
[2017-01-19] MEDS: Sulfamethoxazole/Trimethoprim 800-160 MG Tab PO SCH (20:31)
[2017-01-20] MEDS: Cyclobenzaprine 10 MG Tab PO PRN (04:53)
--- NOTE | 2017-01-20 06:23 | PCM.DCSUM1 ---
[id number] Text/Narrative:: Agree with DC summary. - Discharge Data Discharge Disposition: Home, Self-Care 01 Condition: Good - Discharge Plan Prescriptions/Med Rec: Acetaminophen/HYDROcodone [[place] 325-5 MG] 1 tab PO Q4H PRN #20 tablet PRN Reason: Pain Cyclobenzaprine [Flexeril] 10 mg PO TID PRN #15 tablet PRN Reason: muscle spasms/neck pain Prednisone [IJD: predniSONE] 20 mg PO DAILY #6 tablet Sulfamethoxazole/Trimethoprim [IJD: Sulfamethoxazole/Trimethoprim DS] 1 tab PO BID #14 tablet Home Medications: Home Meds Acetaminophen/HYDROcodone [[place] 325-5 MG] 1 tab PO Q4H PRN #20 tablet 01/20/17 [Rx] Cyclobenzaprine [Flexeril] 10 mg PO TID PRN #15 tablet 01/20/17 [Rx] Prednisone [IJD: predniSONE] 20 mg PO DAILY #6 tablet 01/20/17 [Rx] Sulfamethoxazole/Trimethoprim [IJD: Sulfamethoxazole/Trimethoprim DS] 1 tab PO BID #14 tablet 01/20/17 [Rx] Patient Handouts: Retropharyngeal Abscess Forms: ED Department Discharge Referrals: PCP,None [Primary Care Provider] - - Patient Data Vitals - Most Recent: Last Vital Signs Temp 36.2 C 01/20/17 08:26 Pulse 65 01/20/17 08:26 Resp 16 01/20/17 08:26 BP 118/73 01/20/17 08:26 Pulse Ox 97 01/20/17 08:26 I&O - Last 24 hours: Intake & Output 01/19/17 01/20/17 01/20/17 22:59 06:59 14:59 Intake Total 1875 1600 Output Total 700 Balance 1875 900 Lab Results - Last 24 hrs: Laboratory Results - last 24 hr 01/18/17 01/20/17 01/20/17 Range/Units 06:30 08:07 08:07 WBC 8.21 (4.23-9.07) K/mm3 RBC 4.88 (4.63-6.08) M/mm3 Hgb 14.3 (13.7-17.5) gm/L Hct 43.5 (40.1-51.0) % MCV 89.1 (79.0-92.2) fl MCH 29.3 (25.7-32.2) pg MCHC 32.9 (32.2-35.5) g/dl RDW Std Deviation 44.9 H (35.1-43.9) fL Plt Count 220 (163-337) K/mm3 MPV 10.8 (9.4-12.3) fl Neut % (Auto) 61.7 (34.0-67.9) % Lymph % (Auto) 24.6 (21.8-53.1) % Park % (Auto) 7.8 (5.3-12.2) % Eos % (Auto) 1.8 (0.8-7.0) Baso % (Auto) 0.4 (0.1-1.2) % Neut # (Auto) 5.07 (1.78-5.38) K/mm3 Lymph # (Auto) 2.02 (1.32-3.57) K/mm3 Park # (Auto) 0.64 (0.30-0.82) K/mm3 Eos # (Auto) 0.15 (0.04-0.54) K/mm3 Baso # (Auto) 0.03 (0.01-0.08) K/mm3 Manual Slide Review Abnormal smear Sodium 135 L (136-145) mEq/L Potassium 4.1 (3.5-5.1) mEq/L Chloride 103 (98-107) mEq/L Carbon Dioxide 24 (21-32) mEq/L Anion Gap 12.1 (5-15) BUN 17 (7-18) mg/dL Creatinine 1.0 (0.7-1.3) mg/dL Est Cr Clr Drug Dosing 91.40 mL/min Estimated GFR (MDRD) > 60 (>60) mL/min BUN/Creatinine Ratio 17.0 (14-18) Glucose 96 (74-106) mg/dL Calcium 8.6 (8.5-10.1) mg/dL Total Bilirubin 0.4 (0.2-1.0) mg/dL AST 25 (15-37) U/L ALT 165 H (16-63) U/L Alkaline Phosphatase 61 (46-116) U/L C-Reactive Protein 11.0 H* (<1.0) mg/dL Total Protein 7.2 (6.4-8.2) g/dl Albumin 2.9 L (3.4-5.0) g/dl Globulin 4.3 gm/dL Albumin/Globulin Ratio 0.7 L (1-2) RPR Non-reac (Non-Reac) FERNANDA Results - Last 24 hrs: Microbiology 01/18/17 12:30 Aerobic Blood Culture - Preliminary Blood - Venous - Lab Draw NO GROWTH AFTER 1 DAY Anaerobic Blood Culture - Preliminary NO GROWTH AFTER 1 DAY 01/18/17 12:15 Aerobic Blood Culture - Preliminary Blood - Venous NO GROWTH AFTER 1 DAY Anaerobic Blood Culture - Preliminary NO GROWTH AFTER 1 DAY Med Orders - Current: Current Medications Discontinued Medications Acetaminophen (Tylenol) 650 mg PO Q4H PRN PRN Reason: Pain (Mild 1-3)/fever Hydrocodone Bitart/Acetaminophen ([place] 325-5 Mg) 1 tab PO Q4H PRN PRN Reason: Pain (moderate 4-6) Last Admin: 01/18/17 08:46 Dose: 1 tab Albuterol/Ipratropium (Duoneb 3.0-0.5 Mg/3 Ml) 3 ml NEB Q4H PRN PRN Reason: Shortness Of Breath/wheezing Benzonatate (Tessalon Perles) 200 mg PO TID [facility] Last Admin: 01/20/17 08:49 Dose: 200 mg Bisacodyl (Dulcolax) 5 mg PO DAILY PRN PRN Reason: Constipation Calcium Carbonate/Glycine (Tums) 1,000 mg PO Q2HR PRN PRN Reason: Indigestion Last Admin: 01/18/17 22:30 Dose: 1,000 mg Al Hydroxide/Mg Hydroxide 30 (ml/ Lidocaine HCl 15 ml) 0 ml PO Q6HR [facility] Last Admin: 01/19/17 12:25 Dose: 45 ml Cyclobenzaprine HCl (Flexeril) 10 mg PO TID PRN PRN Reason: NECK PAIN Last Admin: 01/20/17 04:53 Dose: 10 mg Dexamethasone (Dexamethasone) 10 mg IVPUSH ONETIME ONE Stop: 01/15/17 22:31 Last Admin: 01/15/17 22:59 Dose: 10 mg Dexamethasone (Dexamethasone) 4 mg IVPUSH Q6H [facility] Last Admin: 01/18/17 05:26 Dose: 4 mg Docusate Sodium (Colace) 100 mg PO BID PRN PRN Reason: Constipation Hydralazine HCl (Apresoline) 20 mg IVPUSH Q4H PRN PRN Reason: Hypertension Hydromorphone HCl (Dilaudid) 1 mg IVPUSH ONETIME ONE Stop: 01/15/17 20:12 Last Admin: 01/15/17 20:42 Dose: 1 mg Hydromorphone HCl (Dilaudid) 1 mg IVPUSH Q4H PRN PRN Reason: Pain (severe 7-10) Last Admin: 01/19/17 09:12 Dose: 1 mg Sodium Chloride (Normal Saline) 1,000 mls @ 999 mls/hr IV ONETIME ONE Stop: 01/15/17 19:49 Last Admin: 01/15/17 19:11 Dose: 999 mls/hr Sodium Chloride (Normal Saline) 1,000 mls @ 125 mls/hr IV ASDIRECTED [facility] Last Admin: 01/19/17 09:11 Dose: 125 mls/hr Clindamycin Phosphate 900 mg/ (Sodium Chloride) 106 mls @ 100 mls/hr IV ONETIME ONE Stop: 01/15/17 23:10 Last Admin: 01/15/17 22:21 Dose: 100 mls/hr Vancomycin HCl 1 gm/ Sodium (Chloride) 250 mls @ 250 mls/hr IV ONETIME ONE Stop: 01/15/17 23:23 Last Admin: 01/15/17 23:23 Dose: Not Given Clindamycin Phosphate 900 mg/ (Sodium Chloride) 106 mls @ 100 mls/hr IV Q6H [facility] Last Admin: 01/18/17 04:30 Dose: 100 mls/hr Promethazine HCl 12.5 mg/ (Sodium Chloride) 50.5 mls @ 100 mls/hr IV Q6H PRN PRN Reason: Nausea/Vomiting Ceftriaxone Sodium 2 gm/ (Sodium Chloride) 100 mls @ 200 mls/hr IV Q24H [facility] Last Admin: 01/17/17 23:01 Dose: 200 mls/hr Piperacillin Sod/Tazobactam (Sod 4.5 gm/ Sodium Chloride) 100 mls @ 25 mls/hr IV Q8H [facility] Last Admin: 01/19/17 11:28 Dose: 25 mls/hr Piperacillin Sod/Tazobactam (Sod 4.5 gm/ Sodium Chloride) 100 mls @ 200 mls/hr IV ONETIME ONE Stop: 01/16/17 17:44 Last Admin: 01/16/17 18:22 Dose: 200 mls/hr Iopamidol (Isovue-300 (61%)) 80 ml IVPUSH ONETIME ONE Stop: 01/15/17 20:31 Last Admin: 01/15/17 21:08 Dose: 80 ml Ketorolac Tromethamine (Toradol) 30 mg IVPUSH ONETIME ONE Stop: 01/15/17 18:50 Last Admin: 01/15/17 19:10 Dose: 30 mg Lidocaine HCl (Xylocaine 2% Viscous) 15 ml PO ONETIME ONE Stop: 01/15/17 18:50 Last Admin: 01/15/17 19:11 Dose: 15 ml Lorazepam (Ativan) 1 mg IV Q6H PRN PRN Reason: Anxiety Magnesium Sulfate (Pharmacy To Dose - Magnesium Replacement) 1 dose .XX ASDIRECTED [facility] Metoprolol Tartrate (Lopressor) 5 mg IVPUSH Q4H PRN PRN Reason: Tachycardia Ondansetron HCl (Zofran) 4 mg IV Q6H PRN PRN Reason: Nausea/Vomiting Polyethylene Glycol (Miralax) 17 gm PO DAILY PRN PRN Reason: Constipation Potassium Chloride (Pharmacy To Dose - Potassium Replacement) 1 dose .XX ASDIRECTED [facility] Prednisone (Prednisone) 20 mg PO DAILY [facility] Stop: 01/23/17 09:01 Last Admin: 01/20/17 08:49 Dose: 20 mg Saccharomyces Boulardii (Florastor) 250 mg PO TID [facility] Last Admin: 01/16/17 09:04 Dose: 250 mg Saccharomyces Boulardii (Florastor) 250 mg PO BID [facility] Saccharomyces Boulardii (Florastor) 500 mg PO TID [facility] Last Admin: 01/16/17 21:08 Dose: 500 mg Saccharomyces Boulardii (Florastor) 250 mg PO BID [facility] Last Admin: 01/20/17 08:49 Dose: 250 mg Senna/Docusate Sodium (Senna Plus) 1 tab PO BID PRN PRN Reason: Constipation Sodium Chloride (Saline Flush) 10 ml FLUSH ASDIRECTED PRN PRN Reason: Keep Vein Open Last Admin: 01/15/17 20:43 Dose: 10 ml Sodium Chloride (Saline Flush) 10 ml FLUSH ONETIME PRN PRN Reason: IV FLUSH Last Admin: 01/15/17 21:09 Dose: 10 ml Temazepam (Restoril) 30 mg PO BEDTIME PRN PRN Reason: Sleep Last Admin: 01/16/17 00:18 Dose: 30 mg Temazepam (Restoril) 30 mg PO BEDTIME PRN PRN Reason: Sleep Trimethoprim/Sulfamethoxazole (Septra Ds) 1 tab PO BID [facility] Last Admin: 01/20/17 08:49 Dose: 1 tab *Q Meaningful Use (DIS) - VTE *Q VTE Criteria *Q: - Stroke *Q Stroke Criteria *Q: - AMI *Q AMI Criteria *Q: <January Looney M - Last Filed: 01/22/17 12:43> Discharge Summary - Hospital Course Free Text/Narrative:: His is a 31 year old white male with no past medical history who comes seen we complains of sore throat that started Wednesday. He was seen initially at the walk- in clinic on Wednesday and was found negative for strep. He was given medrol dosepak and ibuprofen on discharge but he experienced no relief. The patient presented to emergency department with complaints of fever, chills, nausea and neck pain, edema and odynophagia. Patient denies any previous history in the past. No sick contact or upper respiratory infection. Denies any recent travel. He is not an active smoker. His initial workup in the emergency department shows a CBC remarkable for WBC of 14.18 and neutrophils of 82%. His chemistry is remarkable for anion gap of 16.2, BUN of 22, glucose of 113, AST of 108, ALT of 174, CRP of 21.2 and total protein of 9.1. He is negative for mono screen. His soft tissue of neck CT scan V-rad report reads retropharyngeal abscess and inflammatory change with some right carotid space fluid attenuation. Laryngeal airway appears diminutive clinical correlation requested. Number next adenoiditis without definite active definite tonsillitis. Patient received initial treatment in the emergency department before he was sent to the floor for further management. At the time of my examination, he appeared comfortable and somewhat better. He is being admitted for treatment of retropharyngeal abscess with adenoiditis. Patient did well over course of his stay. He did not have respiratory compromise. He was treated initially with clindamycin, rocephin and vancomycin. He had good response. Blood cultures were positive with Gram stain returned GN coccobacili- abx were switched to zosyn for better GN coverage. Culture returned H. flu sensitive to cephalosporins and to bactrim. He also received IV steroid and pain medications, norco and dilaudid IV. Steroid was tapered to PO dose, day prior to DC he was transitioned to oral bactrim- tolerated well. Repeat blood cultures were obtained and negative. STD screening was negative for GC/chlamydia and RPR. Park was negative. Strep screen was negative. He was afebrile with stable VS at time of discharge. WBC had normalized and CRP was significantly improved. LFT's were elevated in the 100 range on admission, repeated prior to discharge. He is stable for discharge today, discharged home. - Discharge Data Discharge Date: 01/20/17 (admit date 01/15/17) - Discharge Diagnosis/Problem(s) (1) Retropharyngeal abscess SNOMED Code(s): 49655437 ICD Code: J39.0 - RETROPHARYNGEAL AND PARAPHARYNGEAL ABSCESS Status: Acute Priority: High (2) Adenitis, acute SNOMED Code(s): 21174536 ICD Code: L04.9 - ACUTE LYMPHADENITIS, UNSPECIFIED Status: Acute Priority : High - Patient Summary/Data Operative Procedure(s) Performed: None Complications: None Consults: None Labs Pending at D/C: None Recommended Follow-up Testing/Procedures: Establish care with Primary Care Provider--follow up within one week of discharge May return to work tomorrow- 01/21/17 with no restrictions Caution with driving/do not drive while taking narcotic pain medications Planned Operative Procedure(s) after DC: None Hospital Course: As above - Patient Instructions Diet: Heart Healthy Diet, Usual Diet as Tolerated, No Alcoholic Beverages Activity: As Tolerated Driving: May Drive Today (caution with narcotic pain medications) Showering/Bathing: May Shower Notify Provider of: Fever, Increased Pain, Nausea and/or Vomiting - Discharge Summary/Plan Comment DC Time >30 min.: Yes - General Info Date of Service: 01/20/17 Functional Status: Reports: pain controlled, tolerating diet, ambulating, urinating. Denies: new symptoms - Review of Systems General: Reports: No Symptoms HEENT: Reports: sore throat Pulmonary: Reports: no symptoms Cardiovascular: Reports: No Symptoms Gastrointestinal: Reports: No symptoms Genitourinary: Reports: no symptoms Musculoskeletal: Reports: neck pain Skin: Reports: no symptoms Neurological: Reports: No Symptoms Psychiatric: Reports: no symptoms - Patient Data Vitals - Most Recent: Last Vital Signs Temp 97.3 F 01/20/17 02:23 Pulse 54 L 01/20/17 02:23 Resp 12 01/20/17 02:23 BP 134/68 01/20/17 02:23 Pulse Ox 98 01/20/17 02:23 Weight - Most Recent: 197 lb 3.2 oz I&O - Last 24 hours: Intake & Output 01/19/17 01/19/17 01/20/17 14:59 22:59 06:59 Intake Total 120 1875 1600 Output Total 700 Balance 120 1875 900 Lab Results - Last 24 hrs: Laboratory Results - last 24 hr 01/18/17 01/19/17 01/19/17 Range/Units 06:30 05:23 05:23 WBC 7.54 (4.23-9.07) K/mm3 RBC 4.47 L (4.63-6.08) M/mm3 Hgb 13.0 L (13.7-17.5) gm/L Hct 39.9 L (40.1-51.0) % MCV 89.3 (79.0-92.2) fl MCH 29.1 (25.7-32.2) pg MCHC 32.6 (32.2-35.5) g/dl RDW Std Deviation 44.6 H (35.1-43.9) fL Plt Count 176 (163-337) K/mm3 MPV 11.1 (9.4-12.3) fl Neut % (Auto) 67.3 (34.0-67.9) % Lymph % (Auto) 21.8 (21.8-53.1) % Park % (Auto) 8.0 (5.3-12.2) % Eos % (Auto) 0.4 L (0.8-7.0) Baso % (Auto) 0.1 (0.1-1.2) % Neut # (Auto) 5.08 (1.78-5.38) K/mm3 Lymph # (Auto) 1.64 (1.32-3.57) K/mm3 Park # (Auto) 0.60 (0.30-0.82) K/mm3 Eos # (Auto) 0.03 L (0.04-0.54) K/mm3 Baso # (Auto) 0.01 (0.01-0.08) K/mm3 Manual Slide Review Abnormal smear Sodium 138 (136-145) mEq/L Potassium 4.0 (3.5-5.1) mEq/L Chloride 105 (98-107) mEq/L Carbon Dioxide 24 (21-32) mEq/L Anion Gap 13.0 (5-15) BUN 19 H (7-18) mg/dL Creatinine 0.9 (0.7-1.3) mg/dL Est Cr Clr Drug Dosing 101.55 mL/min Estimated GFR (MDRD) > 60 (>60) mL/min BUN/Creatinine Ratio 21.1 H (14-18) Glucose 89 (74-106) mg/dL Calcium 8.0 L (8.5-10.1) mg/dL C-Reactive Protein 4.5 H* (<1.0) mg/dL RPR Non-reac (Non-Reac) FERNANDA Results - Last 24 hrs: Microbiology 01/18/17 12:30 Aerobic Blood Culture - Preliminary Blood - Venous - Lab Draw NO GROWTH AFTER 1 DAY Anaerobic Blood Culture - Preliminary NO GROWTH AFTER 1 DAY 01/18/17 12:15 Aerobic Blood Culture - Preliminary Blood - Venous NO GROWTH AFTER 1 DAY Anaerobic Blood Culture - Preliminary NO GROWTH AFTER 1 DAY Med Orders - Current: Current Medications Acetaminophen (Tylenol) 650 mg PO Q4H PRN PRN Reason: Pain (Mild 1-3)/fever Hydrocodone Bitart/Acetaminophen ([place] 325-5 Mg) 1 tab PO Q4H PRN PRN Reason: Pain (moderate 4-6) Last Admin: 01/18/17 08:46 Dose: 1 tab Albuterol/Ipratropium (Duoneb 3.0-0.5 Mg/3 Ml) 3 ml NEB Q4H PRN PRN Reason: Shortness Of Breath/wheezing Benzonatate (Tessalon Perles) 200 mg PO TID [facility] Last Admin: 01/19/17 20:32 Dose: 200 mg Bisacodyl (Dulcolax) 5 mg PO DAILY PRN PRN Reason: Constipation Calcium Carbonate/Glycine (Tums) 1,000 mg PO Q2HR PRN PRN Reason: Indigestion Last Admin: 01/18/17 22:30 Dose: 1,000 mg Cyclobenzaprine HCl (Flexeril) 10 mg PO TID PRN PRN Reason: NECK PAIN Last Admin: 01/20/17 04:53 Dose: 10 mg Docusate Sodium (Colace) 100 mg PO BID PRN PRN Reason: Constipation Hydralazine HCl (Apresoline) 20 mg IVPUSH Q4H PRN PRN Reason: Hypertension Metoprolol Tartrate (Lopressor) 5 mg IVPUSH Q4H PRN PRN Reason: Tachycardia Ondansetron HCl (Zofran) 4 mg IV Q6H PRN PRN Reason: Nausea/Vomiting Polyethylene Glycol (Miralax) 17 gm PO DAILY PRN PRN Reason: Constipation Prednisone (Prednisone) 20 mg PO DAILY [facility] Stop: 01/23/17 09:01 Last Admin: 01/19/17 09:12 Dose: 20 mg Saccharomyces Boulardii (Florastor) 250 mg PO BID [facility] Last Admin: 01/19/17 20:31 Dose: 250 mg Senna/Docusate Sodium (Senna Plus) 1 tab PO BID PRN PRN Reason: Constipation Sodium Chloride (Saline Flush) 10 ml FLUSH ASDIRECTED PRN PRN Reason: Keep Vein Open Last Admin: 01/15/17 20:43 Dose: 10 ml Temazepam (Restoril) 30 mg PO BEDTIME PRN PRN Reason: Sleep Trimethoprim/Sulfamethoxazole (Septra Ds) 1 tab PO BID [facility] Last Admin: 01/19/17 20:31 Dose: 1 tab Discontinued Medications Al Hydroxide/Mg Hydroxide 30 (ml/ Lidocaine HCl 15 ml) 0 ml PO Q6HR [facility] Last Admin: 01/19/17 12:25 Dose: 45 ml Dexamethasone (Dexamethasone) 10 mg IVPUSH ONETIME ONE Stop: 01/15/17 22:31 Last Admin: 01/15/17 22:59 Dose: 10 mg Dexamethasone (Dexamethasone) 4 mg IVPUSH Q6H [facility] Last Admin: 01/18/17 05:26 Dose: 4 mg Hydromorphone HCl (Dilaudid) 1 mg IVPUSH ONETIME ONE Stop: 01/15/17 20:12 Last Admin: 01/15/17 20:42 Dose: 1 mg Hydromorphone HCl (Dilaudid) 1 mg IVPUSH Q4H PRN PRN Reason: Pain (severe 7-10) Last Admin: 01/19/17 09:12 Dose: 1 mg Sodium Chloride (Normal Saline) 1,000 mls @ 999 mls/hr IV ONETIME ONE Stop: 01/15/17 19:49 Last Admin: 01/15/17 19:11 Dose: 999 mls/hr Sodium Chloride (Normal Saline) 1,000 mls @ 125 mls/hr IV ASDIRECTED [facility] Last Admin: 01/19/17 09:11 Dose: 125 mls/hr Clindamycin Phosphate 900 mg/ (Sodium Chloride) 106 mls @ 100 mls/hr IV ONETIME ONE Stop: 01/15/17 23:10 Last Admin: 01/15/17 22:21 Dose: 100 mls/hr Vancomycin HCl 1 gm/ Sodium (Chloride) 250 mls @ 250 mls/hr IV ONETIME ONE Stop: 01/15/17 23:23 Last Admin: 01/15/17 23:23 Dose: Not Given Clindamycin Phosphate 900 mg/ (Sodium Chloride) 106 mls @ 100 mls/hr IV Q6H [facility] Last Admin: 01/18/17 04:30 Dose: 100 mls/hr Promethazine HCl 12.5 mg/ (Sodium Chloride) 50.5 mls @ 100 mls/hr IV Q6H PRN PRN Reason: Nausea/Vomiting Ceftriaxone Sodium 2 gm/ (Sodium Chloride) 100 mls @ 200 mls/hr IV Q24H [facility] Last Admin: 01/17/17 23:01 Dose: 200 mls/hr Piperacillin Sod/Tazobactam (Sod 4.5 gm/ Sodium Chloride) 100 mls @ 25 mls/hr IV Q8H [facility] Last Admin: 01/19/17 11:28 Dose: 25 mls/hr Piperacillin Sod/Tazobactam (Sod 4.5 gm/ Sodium Chloride) 100 mls @ 200 mls/hr IV ONETIME ONE Stop: 01/16/17 17:44 Last Admin: 01/16/17 18:22 Dose: 200 mls/hr Iopamidol (Isovue-300 (61%)) 80 ml IVPUSH ONETIME ONE Stop: 01/15/17 20:31 Last Admin: 01/15/17 21:08 Dose: 80 ml Ketorolac Tromethamine (Toradol) 30 mg IVPUSH ONETIME ONE Stop: 01/15/17 18:50 Last Admin: 01/15/17 19:10 Dose: 30 mg Lidocaine HCl (Xylocaine 2% Viscous) 15 ml PO ONETIME ONE Stop: 01/15/17 18:50 Last Admin: 01/15/17 19:11 Dose: 15 ml Lorazepam (Ativan) 1 mg IV Q6H PRN PRN Reason: Anxiety Magnesium Sulfate (Pharmacy To Dose - Magnesium Replacement) 1 dose .XX ASDIRECTED [facility] Potassium Chloride (Pharmacy To Dose - Potassium Replacement) 1 dose .XX ASDIRECTED [facility] Saccharomyces Boulardii (Florastor) 250 mg PO TID [facility] Last Admin: 01/16/17 09:04 Dose: 250 mg Saccharomyces Boulardii (Florastor) 250 mg PO BID [facility] Saccharomyces Boulardii (Florastor) 500 mg PO TID [facility] Last Admin: 01/16/17 21:08 Dose: 500 mg Sodium Chloride (Saline Flush) 10 ml FLUSH ONETIME PRN PRN Reason: IV FLUSH Last Admin: 01/15/17 21:09 Dose: 10 ml Temazepam (Restoril) 30 mg PO BEDTIME PRN PRN Reason: Sleep Last Admin: 01/16/17 00:18 Dose: 30 mg - Exam Quality Assessment: Reports: DVT prophylaxis General: Reports: alert, oriented, cooperative, no acute distress HEENT: Reports: Pupils equal, Pupils reactive, EOMI, Mucous membr. moist/pink Neck: Reports: supple Lungs: Reports: Clear to auscultation, Normal respiratory effort Cardiovascular: Reports: Regular Rate, Regular Rhythm Abdomen: Reports: bowel sounds present, soft, no tenderness, no distension (Male) Exam: Deferred Rectal (Males) Exam: Deferred Extremities: Reports: no edema Neurological: Reports: no new focal deficit Psy/Mental Status: Reports: alert, normal affect, normal mood *Q Meaningful Use (DIS) - VTE *Q VTE Criteria *Q: - Stroke *Q Stroke Criteria *Q: - AMI *Q AMI Criteria *Q:
[2017-01-20 08:29] VITALS: BP 118/73
[2017-01-20] MEDS: Saccharomyces Boulardii (Probiotic) 250 MG Cap PO SCH (08:49)
[2017-01-20] MEDS: Benzonatate 100 MG Cap PO SCH (08:49)
[2017-01-20] MEDS: predniSONE 20 MG Tab PO SCH (08:49)
[2017-01-20] MEDS: Sulfamethoxazole/Trimethoprim 800-160 MG Tab PO SCH (08:49)
== END 2017-01-20 09:26 | disposition home or self-care (01) | DRG 113 ==
LOC: JD.ED 18:14 → JD.MS 23:18
PROVIDERS: ADMIT Internal Medicine; ATTEND Internal Medicine
DX: J39.0 Retropharyngeal and parapharyngeal abscess (principal); L04.9 Acute lymphadenitis, unspecified; R13.10 Dysphagia, unspecified; B96.89 Other specified bacterial agents as the cause of diseases classified elsewhere; R00.1 Bradycardia, unspecified
CPT/HCPCS: 36415; 70491; 70491-26; 80048; 80053; 83605; 83735; 85025; 86140; 86308; 86592; 87040; 87077; 87081; 87184; 87430; 87491; 87591; 94762; 96361; 96365; 96375; 99284; 99285-25; A9270-GY; J0696; J1100; J1170; J1885; J2543; J7030; J7040; J7050; Q9967

== ENCOUNTER 2022-08-30 04:37 | Emergency (ER) | payer BC ==
[2022-08-30 07:11] VITALS: BP 141/96; PULSE 104
== END 2022-08-30 07:10 | disposition home or self-care (01) ==
LOC: JD.ED 04:37
DX: I11.0 Hypertensive heart disease with heart failure (principal); I50.1 Left ventricular failure, unspecified; F16.10 Hallucinogen abuse, uncomplicated; E66.9 Obesity, unspecified; Z68.36 Body mass index [BMI] 36.0-36.9, adult; Z88.0 Allergy status to penicillin; Z88.1 Allergy status to other antibiotic agents; Z87.891 Personal history of nicotine dependence
CPT/HCPCS: 36415; 71045; 71045-26; 80053; 83880; 84484; 85025; 85379; 85610; 85730; 93005; 93010; 99284; 99285

== ENCOUNTER 2024-03-13 13:54 | Emergency (ER) | payer BC, OTHER ==
[2024-03-13 14:17] VITALS: BP 152/82; PULSE 81
[2024-03-13] MEDS ORDERED: Sodium Chloride 0.9% 10 ML Syringe FLUSH PRN (14:21)
[2024-03-13] MEDS: Triamcinolone Acetonide 40 MG/ML 1 ML SDV IM ONE (15:05)
[2024-03-13] MEDS: Ketorolac 60 MG/2 ML SDV IM ONE (15:05)
[2024-03-13] MEDS: tiZANidine 4 MG Tab PO ONE (15:05)
== END 2024-03-13 16:20 | disposition home or self-care (01) ==
LOC: JD.ED 13:54
DX: M54.42 Lumbago with sciatica, left side (principal); G89.29 Other chronic pain; J45.909 Unspecified asthma, uncomplicated; E66.9 Obesity, unspecified; Z79.899 Other long term (current) drug therapy; Z88.0 Allergy status to penicillin; Z88.1 Allergy status to other antibiotic agents; Z68.28 Body mass index [BMI] 28.0-28.9, adult
CPT/HCPCS: 96372; 99283; A9270; J1885; J3301